=== PATIENT | male | born 1985 | race Caucasian/White ===

== ENCOUNTER 2021-05-16 14:38 | Emergency (ER) | payer OTHER, SELFPAY ==
--- NOTE | 2021-05-16 14:45 | ED.GENADULT ---
HPI - General Adult General Chief complaint: Arrhythmia/Palpitations Stated complaint: IRREGULAR HEARTBEAT/SOB Source: patient Mode of arrival: ambulatory Limitations: no limitations History of Present Illness HPI narrative: 36-year-old male presented for complaints of irregular heartbeat, onset yesterday, worsened today, stating it is more frequent. States 'it feels like a skips a beat.' Denies associated chest pain, shortness of breath, dizziness, syncope, nausea, vomiting, diarrhea, fever or chills. Drinks minimal caffeine, Runs for distance and was able to complete 4 miles yesterday without difficulty. He endorses receiving his ZeroVM booster yesterday. Hx thyroidectomy 05/22 thyroid CA. Related Data Home Medications Medication Instructions Recorded Confirmed levothyroxine [Synthroid] 05/16/21 Allergies Allergy/AdvReac Type Severity Reaction Status Date / Time No Known Allergies Allergy Verified 05/16/21 14:46 Review of Systems Review of Systems: CONSTITUTIONAL: Denies body aches, fever, chills, or sweats. EYES: Denies visual changes, redness, or discharge. ENT: Denies rhinorrhea, congestion, sore throat, or otalgia. CARDIOVASCULAR: Endorses palpitations Denies chest pain or edema. RESPIRATORY: Denies cough or dyspnea. GASTROINTESTINAL: Denies abdominal pain, nausea, vomiting, or diarrhea. GENITOURINARY: Denies dysuria or hematuria. SKIN: Denies rash, itching, or wounds. MUSCULOSKELETAL: Denies back pain, joint pain, or myalgia. NEUROLOGIC: Denies headache, numbness, tingling, or weakness. PSYCH: Denies depression or anxiety. All systems reviewed & are unremarkable except as noted in HPI and below PMFSH Family History Family History Father Family history of seizure disorder Social History Social History Smoking status: Never smoker Comments At time of signature, I have reviewed and agree with nursing past medical, surgical, social and family history unless otherwise noted. Please see nursing chart for further information. There is no relevant family history pertinent to the presenting complaint Exam Narrative: GENERAL: Well-appearing, well-nourished, and in no acute distress. HEAD: Normocephalic, atraumatic. EYES: EOMI. No redness or drainage. Conjunctivae normal. ENT: Mucous membranes pink and moist. No rhinorrhea. NECK: Normal AROM. Supple. No lymphadenopathy. Scarring 2/2 lymph node surgeries CHEST: No respiratory distress. Clear to auscultation. HEART: Regular rate and rhythm. No murmur appreciated. Normal peripheral pulses. ABDOMEN: Soft, nontender, nondistended, normal active bowel sounds. MUSCULOSKELETAL: No bony tenderness. EXTREMITIES: Normal range of motion. No edema. SKIN: Warm, dry, no rash. Capillary refill normal. Normal skin turgor. NEURO: No focal deficits. Alert and oriented x3. Gait steady. PSYCH: Normal affect. No signs of depression or anxiety. Course Course Emergency Course: EKG reviewed with pt. He is advised to f/u with cardiology for further evaluation. We discussed at length any worsening sx or concerns to go to ER. Patient is aware of diagnosis, understands and agrees to treatment plan. Anticipatory guidance given. Patient agrees to follow-up as directed and is aware of reasons to seek care at the emergency department. Portions of this record may have been created with voice recognition software Level of Care: Express Care Visit Vital Signs Vital signs: Vital Signs Temperature 97.8 F 05/16/21 14:48 Pulse Rate 72 05/16/21 14:48 Respiratory Rate 05/16/21 14:48 Blood Pressure 128/89 05/16/21 14:48 Pulse Oximetry 100 05/16/21 14:48 Temperature 97.8 F 05/16/21 14:48 Pulse Rate 72 05/16/21 14:48 Respiratory Rate 05/16/21 14:48 Blood Pressure 128/89 05/16/21 14:48 Pulse Oximetry 100 05/16/21 14:48 Me
[2021-05-16 14:48] VITALS: BP 128/89; PULSE 72; RESP 20; TEMP 36.6; O2SAT 100
--- NOTE | 2021-05-16 14:52 | ECG_ITS ---
Measurements Intervals [place] Rate: 63 P: 44 VT: 173 QRS: 26 QRSD: 113 T: 24 QT: 401 QTc: 414 Interpretive Statements SINUS RHYTHM INCOMPLETE RIGHT BUNDLE BRANCH BLOCK PEAKED T WAVES- CONSIDER HYPERKALEMIA ABNORMAL ECG Electronically Signed On 05-16-2021 15:20:22 ACTUARIAL TECHNICIAN by Dwayne Robison D.O.
== END 2021-05-16 15:20 | disposition home or self-care (01) ==
PROVIDERS: Emergency Provider Nurse Practitioner Family
DX: R00.2 Palpitations (principal); E89.0 Postprocedural hypothyroidism; Z85.850 Personal history of malignant neoplasm of thyroid
CPT/HCPCS: 93005; 99203; G0463

== ENCOUNTER 2024-05-24 08:41 | Emergency (ER) | payer OTHER, SELFPAY ==
[2024-05-24] VITALS (9 sets, daily range): BP systolic 113–120; BP diastolic 79–82; PULSE 56–68; RESP 11–19; TEMP 36.6; O2SAT 100
--- OUTSIDE RECORDS SUMMARY | 2024-05-24 08:56 | XMS_ITS | Clinical Summary ---
Author Organization [facility] Address [address] [place] [id number] Care Team Providers Care Finisher Merchant Products Name Role Phone Unavailable Primary Care Provider Unavailabl e Social History Tobacco Use Types Packs/Day Years Used Date Smoking Tobacco: Never Assessed Sex and Gender Information Value Date Recorded Sex Assigned at Not on file Legal Sex Male 8:45 AM ENVIRONMENTAL HEALTH SPECIALIST Gender Identity Not on file Sexual Orientation Not on file Plan of Treatment Health Maintenance Due Date Last Done Comments Hepatitis C Virus (HCV) Screening 1987 TdaP Immunization 1987 Hepatitis B Immunization (1 of 3 - 19+ 3-dose series) 2006 Influenza Immunization (#1) 12/20/202306/2019, 01/10/2018 SARS-COV-2 Immunization ( season) 2023 Respiratory Syncytial Virus (RSV) Immunization (Adult) (1 - 1-dose 75+ series) 2062 Meningococcal Immunization (ACWY) Aged Out No longer eligible b ased on patient's age to complete this topic Pneumococcal Immunization Combined Aged Out No longer eligible b ased on patient's age to complete this topic Rotavirus Immunization Aged Out No lo nger eligible based on patient's age to complete this topic Insurance [employer] on file
--- OUTSIDE RECORDS SUMMARY | 2024-05-24 08:56 | XMS_ITS ---
Author Organization [facility] Address [address] [place] [address] Care Team Providers Care Commercial Census Taker Name Role Phone Kaley Camacho MD Unavailable [phone] Ger Marcos MD Unavailable [phone] No, Physician Primary Care Provider [phone] Active Problems Problem Noted Date Diagnosed Date Palpitations 06/12/2021 Lipid screening 06/12/2021 Lymphadenopathy of head and neck region 10/06/19 19 Overview (10/05/2018): Added automatically from request for surgery [id number] History of papillary adenocarcinoma of thyroid 0 10/05/2018 Overview (10/05/2018): Added automatically from request for surgery [id number] Postoperative hypothyroidism 02/18/2018 Assessment & Plan (04/23/2020 4:41 PM UTILITY TRACTOR OPERATOR): Lower Synthroid to 200 mcg daily, but only half a tablet on Thursday Recheck a TSH in 3months Assessment & Plan (04/11/2019 2:14 PM UTILITY TRACTOR OPERATOR): Continue Synthroid 200 mcg daily Recheck levels in 4 wks Importance of taking the medication, on an empty stomach was discussed Assessment & Plan (02/18/2018 2:06 PM CDT): I had a lengthy discussion with shane hernandez about the goal of treatment of post operative hypothyroid. With history of papillary thyroid carcinoma a TSH in the range of 0.1 should be the goal. I explained to the patient how most patients are treated with LT4 and are adequately controlled. However in spite of normal or at goal TSH level, many patients continue to complain of some nonspecific symptoms including fatigue. In this situation, the use of T3 has been advocated . Although well conducted clinical trials testing both options of treatment e.g. L T4 versus combination L T4 plus L T3 have not shown any statistically significant difference, at an individual level some patients feel better with the combination therapy . Mr. Pelayo has already been tried on Shiloh , which includes combination of L T4 and T3. Unfortunately, he has not noticed any difference in his symptoms and has lead the patient to over replacement with hyperthyroidism. Controlling thyroid levels on Shiloh is always more difficult . Most of this patien's are actually clinical hyperthyroid or with subclinical hyperthyroidism. My recommendation at this moment is to go back to the levothyroxine. Brand name Synthroid is strongly recommended. I have recommended in a dose of 200 mcg daily Thursday through Thursday and 100 mcg on Sundays. This would be equivalent to around 180 mcg daily . 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 Camacho Assessment & Plan (04/11/2019 2:15 PM UTILITY TRACTOR OPERATOR): Keep TSH around 0.1 with normal free T4 Monitoring TG Pt also following with oncologist. Current Oncology Plans No current plan information found. Past Plans No past plan information found. Radiation Treatments * No radiation treatments are documented for this patient in [facility]. Treatments may have been administered in another system. Lifetime Dose Tracking * Chemical Lifetime Dose Automatic Entry Manual Entr y DLP 336 mGycm 336 mGycm 0 mGycm
--- OUTSIDE RECORDS SUMMARY | 2024-05-24 08:56 | XMS_ITS | Clinical Summary ---
Author Organization [facility] Address [address] [place] [address] Care Team Providers Care Hot Top Liner Helper Name Role Phone Merrill Wadsworthwn Zbigniew DO Primary Care Provider [phone] Source Comments [facility],non-owned Affiliates and Associated Physician Practices is amultiple site organization consisting of ambulatory clinics and hospital sitesin [place], [place], [place] and [place]. This disclosure is being madepursuant to the Care Everywhere program and may not contain all information available regarding this patient. Last updated 18.[facility] Allergies No known active allergies Medications * Be aware that medications may not be up to date on this document. Alwaysverify current medications with the patient. Medication Sig Dispensed Refills Start Date End Date Status hydrocodone-acetaminop hen (NORCO) 7.5-325 MG tablet Take 1-2 Tabs by mouth every 4 hours as needed for Pain. 40 Tab 0 05/20/2013 Active liothyronine (CYTOMEL) 50 MCG tablet Take 1 Tab by mouth once daily. 45 Tab 0 05/20/2013 Active Calcium 1500 MG TABS Take 4,000 mg by mouth once daily. Active Active Problems Problem Noted Date Diagnosed Date Papillary thyroid carcinoma 05/10/2013 Social History Tobacco Use Types Packs/Day Years Used Date Smoking Tobacco: Never Alcohol Use Standard Drinks/Week Comments Yes 0 (1 standard drink = 0.6 oz pur e alcohol) Sex and Gender Information Value Date Recorded Sex Assigned at Not on file Gender Identity Not on file Sexual Orientation Not on file Last Filed Vital Signs Vital Sign Reading Time Taken Comments Blood Pressure 135/77 05/26/2013 3:30 PM DIRECTOR OF PHYSICAL THERAPY Pulse 72 05/26/2013 3:30 PM DIRECTOR OF PHYSICAL THERAPY Temperature 36.6 ??C (97.9 ??F) 05/26/2013 1:16 PM CS T Respiratory Rate 18 05/26/2013 3:30 PM DIRECTOR OF PHYSICAL THERAPY Oxygen Saturation 99% 05/26/2013 3:30 PM DIRECTOR OF PHYSICAL THERAPY Inhaled Oxygen Concentration - - Weight 81.4 kg (179 lb 6.4 oz) 05/26/2013 9:20 A M DIRECTOR OF PHYSICAL THERAPY Height 193 cm (6' 4 ) 05/26/2013 9:20 AM DIRECTOR OF PHYSICAL THERAPY Body Mass Index 21.84 05/26/2013 9:20 AM DIRECTOR OF PHYSICAL THERAPY Plan of Treatment Health Maintenance Due Date Last Done Comments HIV SCREENING 2002 HEPATITIS C SCREENING 01/04/2005 DTAP/TDAP/TD VACCINES (1 - Tdap) 2006 HEPATITIS B VACCINE (1 of 3 - 19+ 3-dose series) 2006 COVID-19 VACCINE ( - 2023-2 5 season) 2023 INFLUENZA VACCINE (#1) 2023 DEPRESSION SCREENING 04/20/2024 ZOSTER VACCINE (1 of 2) 2037 HIB VACCINE Aged Out No longer eligi ble based on patient's age to complete this topic HPV VACCINE Aged Out No longer eligi ble based on patient's age to complete this topic MENINGOCOCCAL (Group B) VACCINE Aged Out No longer eligible based on patient's age to complete this topic MENINGOCOCCAL VACCINE Aged Out No chang mehul eligible based on patient's age to complete this topic PNEUMOCOCCAL VACCINE Aged Out No long er eligible based on patient's age to complete this topic Medical Devices Implanted Type Area Soft Mud Molder Device Identifier Shelf Expiration Date Model / Serial / Lot Glue Tisseel Fibrin 4ml Implanted:Qty: 1 on 05/26/2013 by Wilder Marcos MD at [facility] [employer] 12/08/2014 [id number] / / [id number] Advance Directives * FULL RESUSCITATION (Latest Code Status on File) Date Activated Date Inactivated Comments 05/19/2013 3:47 PM 05/20/2013 9:26 AM Care Teams Hot Top Liner Helper Relationship Specialty Start Date End Date Vinh Wadsworth DO PCP - General Family Medicine 05/19/13
--- OUTSIDE RECORDS SUMMARY | 2024-05-24 08:56 | XMS_ITS | Referral Summary ---
Author Organization [facility] Address [address] [place] [address] Care Team Providers Care Mirror Inspector Name Role Phone Merrill Wadsworthwn Zbigniew DO Primary Care Provider [phone] Source Comments [facility],non-owned Affiliates and Associated Physician Practices is amultiple site organization consisting of ambulatory clinics and hospital sitesin [place], [place], [place] and [place]. This disclosure is being madepursuant to the Care Everywhere program and may not contain all information available regarding this patient. Last updated 18.[facility] Allergies No known active allergies Medications * [...] Comments Blood Pressure 135/77 05/26/2013 3:30 PM SOCIAL WORK PROGRAM COORDINATOR Pulse 72 05/26/2013 3:30 PM SOCIAL WORK PROGRAM COORDINATOR Temperature 36.6 ??C (97.9 ??F) 05/26/2013 1:16 PM CS T Respiratory Rate 18 05/26/2013 3:30 PM SOCIAL WORK PROGRAM COORDINATOR Oxygen Saturation 99% 05/26/2013 3:30 PM SOCIAL WORK PROGRAM COORDINATOR Inhaled Oxygen Concentration - - Weight 81.4 kg (179 lb 6.4 oz) 05/26/2013 9:20 A M SOCIAL WORK PROGRAM COORDINATOR Height 193 cm (6' 4 ) 05/26/2013 9:20 AM SOCIAL WORK PROGRAM COORDINATOR Body Mass Index 21.84 05/26/2013 9:20 AM SOCIAL WORK PROGRAM COORDINATOR Functional Status Functional Status Response Date of Assess ment Is person deaf or have serious hearing difficult y? No 05/26/2013 Is person blind or have serious difficulty seein g? No 05/26/2013 Does person have serious dif ficulty walking/climbing stairs? No 05/26/2013 Does person have difficulty dressing/bathing? No 05/26/2013 Does person have difficulty doing errands alone? No 05/26/2013 Cognitive Status Response Date of Assessm ent Does person have difficulty concentrating/remembering/making decisions? No 05/26/2013 Plan of Treatment Not on file Medical Devices Implanted Type Area Wardrobe Attendant Device Identifier Shelf Expiration Date Model / Serial / Lot Glue Tisseel Fibrin 4ml Implanted:Qty: 1 on 05/26/2013 by Wilder Marcos MD at [facility] [employer] 12/08/2014 [id number] / / [id number] Advance Directives * FULL RESUSCITATION (Latest Code Status on File) Date Activated Date Inactivated Comments 05/19/2013 3:47 PM 05/20/2013 9:26 AM Care Teams Mirror Inspector Relationship Specialty Start Date End Date Vinh Wadsworth DO PCP - General Family Medicine 05/19/13
--- OUTSIDE RECORDS SUMMARY | 2024-05-24 08:56 | XMS_ITS | Patient Health Summary ---
Author Organization [facility] Address [address] [address] Care Team Providers Care [employer]modal Customer Service Name Role Phone Merrill Wadsworthwchet Coy DO Primary Care Provider [phone] Note from [facility] [place],non-owned Affiliates and Associated Physician Practices is amultiple site organization consisting of ambulatory clinics and hospital sitesin [place], [place], [place] and [place]. This disclosure is being madepursuant to the Care Everywhere program and may not contain all information available regarding this patient. Last updated 18.[facility] [employer] Allergies No known active allergies Medications * Be aware that medications may not be up to date on this document. Alwaysverify current medications with the patient. * hydrocodone-acetaminophen (NORCO) 7.5-325 MG tablet(Started 05/20/2013) Take 1-2 Tabs by mouth every 4 hours as needed for Pain. * liothyronine (CYTOMEL) 50 MCG tablet(Started 05/20/2013) Take 1 Tab by mouth once daily. * Calcium 1500 MG TABS Take 4,000 mg by mouth once daily. Active Problems Problem Noted Date Diagnosed Date [...] Comments Blood Pressure 135/77 05/26/2013 3:30 PM FINISH CLEANER Pulse 72 05/26/2013 3:30 PM FINISH CLEANER Temperature 36.6 ??C (97.9 ??F) 05/26/2013 1:16 PM CS T Respiratory Rate 18 05/26/2013 3:30 PM FINISH CLEANER Oxygen Saturation 99% 05/26/2013 3:30 PM FINISH CLEANER Inhaled Oxygen Concentration - - Weight 81.4 kg (179 lb 6.4 oz) 05/26/2013 9:20 A M FINISH CLEANER Height 193 cm (6' 4 ) 05/26/2013 9:20 AM FINISH CLEANER Body Mass Index 21.84 05/26/2013 9:20 AM FINISH CLEANER Medical Devices Implanted Type Area Wall Crane Operator Device Identifier Shelf Expiration Date Model / Serial / Lot Glue Tisseel Fibrin 4ml Implanted:Qty: 1 on 05/26/2013 by Wilder Marcos MD at [facility] [employer] 12/08/2014 [id number] / / [id number] Procedures * US SOFT TISSUE HEAD NECK(Performed 10/02/2014) Performed for Malignant neoplasm of thyroid gland (HCC) * NM THYROID WHOLE BODY SCAN(Performed 03/01/2014) Performed for Malignant neoplasm of thyroid gland (HCC) * NM RADIOPHARM THERAPY BY ORAL ADM(Performed 02/27/2014) Performed for Thyroid cancer (HCC) * NM THYROID WHOLE BODY SCAN(Performed 01/27/2014) Performed for Thyroid cancer (HCC) * NM THYROID WHOLE BODY SCAN(Performed 06/23/2013) Performed for Malignant neoplasm of thyroid gland (HCC) * NM RADIOPHARM THERAPY BY ORAL ADM(Performed 06/21/2013) Performed for Malignant neoplasm of thyroid gland (HCC) * EXPLORATION NECK(Performed 05/26/2013) Performed for Other specified forms of effusion, except tuberculous * PULMONARY/RESPIRATORY REPORT ORDER(Performed 05/22/2013) * LAB RESULTS ORDER(Performed 05/22/2013) * CALCIUM IONIZED BLOOD(Performed 05/20/2013) Performed for Papillary thyroid carcinoma (HCC) * PATHOLOGY TISSUE EXAM (STL)(Performed 05/19/2013) Performed for Papillary thyroid carcinoma (HCC) * DISSECTION RADICAL NECK(Performed 05/19/2013) Performed for Malignant neoplasm of thyroid gland (HCC), Enlargement of lymph nodes * THYROIDECTOMY(Performed 05/19/2013) Performed for Malignant neoplasm of thyroid gland (HCC), Enlargement of lymph nodes * CBC W AUTO DIFFERENTIAL(Performed 05/09/2013) Performed for Other specified pre-operative examination * FINE NEEDLE ASPIRATION (STL)(Performed 04/05/2013) Performed for Nontoxic uninodular goiter, Goiter, unspecified, Unspecified hypothyroidism, Enlargement of lymph nodes * US THYROID FNA LEFT(Performed 04/05/2013) Performed for Nontoxic uninodular goiter, Goiter, unspecified, Unspecified hypothyroidism, Enlargement of lymph nodes * CT NECK SOFT TISSUE W CONT(Performed 04/05/2013) Performed for Nontoxic uninodular goiter, Goiter, unspecified, Unspecified hypothyroidism, Enlargement of lymph nodes Results * US HEAD NECK TISSUES B - SCAN REAL TIME (10/02/2014 7:51 AM CDT) Anatomical Region Laterality Modality Head Ultrasound 10/02/2014 10:1 9 AM CDT Impressions 10/02/2014 11:35 AM CDT Hypoechoic tissue in the bilateral thyroid bed may reflect recurrent or remnant thyroid tissue. If it would change clinical management, FNA or nuclear scintigraphy could be provided. Edited by Fina Rubio on 10/02/2014 10:27 AM Narrative 10/02/2014 11:35 AM CDT ULTRASOUND THYROID HISTORY: Prior thyroidectomy for cancer. COMPARISON: 2013. TECHNIQUE: Real-time high frequency ultrasound of the thyroid performed by ultrasound technol including color Doppler imaging and DICOM image capture. FINDINGS: The patient is status post thyroidectomy. In the right thyroid bed, there is a 12 x 7 mm lobulated hypoechoic lesion which may reflect recurrent or remnant thyroid tissue. See image 18. In the left thyroid bed, there is a similar 10 x 15 x 8 mm hypoechoic lesion, image 37 + 38. No internal Doppler signal or microcalcifications in either thyroid bed. There are small nonenlarged right cervical lymph nodes. Procedure Note Betito Flores MD - 10/02/2014 ULTRASOUND THYROID HISTORY: Prior thyroidectomy for cancer. COMPARISON: 2013. TECHNIQUE: Real-time high frequency ultrasound of the thyroid performed by ultrasound technol including color Doppler imaging and DICOM image capture. FINDINGS: The patient is status post thyroidectomy. In the right thyroid bed, there is a 12 x 7 mm lobulated hypoechoic lesion which may reflect recurrent or remnant thyroid tissue. See image 18. In the left thyroid bed, there is a similar 10 x 15 x 8 mm hypoechoic lesion, image 37 + 38. No internal Doppler signal or microcalcifications in either thyroid bed. There are small nonenlarged right cervical lymph nodes. IMPRESSION Hypoechoic tissue in the bilateral thyroid bed may reflect recurrent or remnant thyroid tissue. If it would change clinical management, FNA or nuclear scintigraphy could be provided. Edited by Fina Rubio on 10/02/2014 10:27 AM Kaley Camacho MD US ORDERABLES * NM THYROID CA METS SCAN WHOLE BODY (03/01/2014 2:08 PM FINISH CLEANER) Only the most recent of3 resultswithin the time period is included. Anatomical Region Laterality Modality Chest Nuclear Medicine 03/01/2014 2:36 PM FINISH CLEANER Impressions 03/01/2014 2:42 PM FINISH CLEANER No metastatic disease or residual thyroid tissue identified. No significant change. Narrative 03/01/2014 2:42 PM FINISH CLEANER Nuclear medicine radioiodine whole-body scan: HISTORY: Thyroid cancer, thyroidectomy. Prior iodine-131 ablation therapy. Followup evaluation. 145.9 mCi iodine-131 was orally administered 02/27/2014. A whole-body radioiodine scan was performed on 03/01/2014 (48 hours after the administration). Comparison is made to prior studies, most recently on 01/27/2014. There is no abnormal focus of activity identified in the region of the thyroid bed, neck, or elsewhere in the body to suggest residual thyroid tissue or metastatic disease. Procedure Note Chan Phillips MD - 03/01/2014 Nuclear medicine radioiodine whole-body scan: HISTORY: Thyroid cancer, thyroidectomy. Prior iodine-131 ablation therapy. Followup evaluation. 145.9 mCi iodine-131 was orally administered 02/27/2014. A whole-body radioiodine scan was performed on 03/01/2014 (48 hours after the administration). Comparison is made to prior studies, most recently on 01/27/2014. There is no abnormal focus of activity identified in the region of the thyroid bed, neck, or elsewhere in the body to suggest residual thyroid tissue or metastatic disease. IMPRESSION No metastatic disease or residual thyroid tissue identified. No significant change. Kaley Camacho MD NM ORDERABLES * NM RADIOPHARM THERAPY BY ORAL ADM (02/27/2014 2:58 PM FINISH CLEANER) Only the most recent of2 resultswithin the time period is included. Anatomical Region Laterality Modality Nuclear Medicine 02/27/2014 3:22 PM FINISH CLEANER Impressions 02/27/2014 3:22 PM FINISH CLEANER Therapeutic radiopharmaceutical administration as discussed above. Narrative 02/27/2014 3:22 PM FINISH CLEANER Nuclear medicine radioactive iodine radiopharmaceutical therapeutic administration HISTORY: Cancer. TECHNIQUE AND FINDINGS: Therapeutic radioactive iodine administration supervised by the ordering + authorized clinician. Please refer to any relevant documentation by the supervising authorized physician. Reportedly, under direct observation by Dr. Camacho, the patient ingested P.O. ??145.9 mCi of I-131. Procedure Note Betito Flores MD - 02/27/2014 Nuclear medicine radioactive iodine radiopharmaceutical therapeutic administration HISTORY: Cancer. TECHNIQUE AND FINDINGS: Therapeutic radioactive iodine administration supervised by the ordering + authorized clinician. Please refer to any relevant documentation by the supervising authorized physician. Reportedly, under direct observation by Dr. Camacho, the patient ingested P.O. 145.9 mCi of I-131. IMPRESSION Therapeutic radiopharmaceutical administration as discussed above. Kaley Camacho MD NM ORDERABLES * PULMONARY/RESPIRATORY REPORT ORDER (05/22/2013 3:28 AM FINISH CLEANER) Narrative 05/22/2013 3:28 AM FINISH CLEANER Ordered by an unspecified provider. Transcriptions Document, Scanned - 05/22/2013 3:28 AM CST Scanned Document RESPIRATORY THERAPY ORDERABLES * LAB RESULTS ORDER (05/22/2013 3:28 AM FINISH CLEANER) Narrative 05/22/2013 3:28 AM FINISH CLEANER Ordered by an unspecified provider. Transcriptions Document, Scanned - 05/22/2013 3:28 AM CST Scanned Document LAB - THERAPEUTIC DR LIN MONITORING ORDERABLES * (ABNORMAL) CALCIUM IONIZED BLOOD (05/20/2013 4:19 AM FINISH CLEANER) Calcium Ionized 1.05(L) 1.12 - 1.32 mmol/L 05/20/2013 4:50 AM [facility] pH 7.37 7.35 - 7.45 pH 05/20/2013 4:50 AM [facility] Blood BLOOD SPECIMEN SUBMITTED IN HEPARINIZED COLLECTION TUBE / Unknown Lab Venipuncture / Unknown 05/20/2013 4:19 AM FINISH CLEANER 05/20/2013 4:42 AM FINISH CLEANER Wilder Marcos MD LAB - CHEMISTRY KEISHA ORTIZ [facility] [address] [place] [address] * GROSS + MICRO EXAM (STL) (05/19/2013 9:50 AM FINISH CLEANER) Case Report Surgical Pathology Report ? Case: [id number] ? -------- Authorizing Provider: ??Wilder Marcos MD ?Ordering Provider: ?? Wilder Marcos MD ? Ordering Location: ? [facility] ? Collected: ? 05/19/2013 ??9:50 AM ? Pathologist: ? Chan Cornejo MD ? Received: ?05/19/2013 ??3:23 PM ?Signed Out: ?05/23/2013 ??3:27 PM (Final) ? Specimens: ?? A) - Thyroid Total ? B) - Lymph Node, Rt central compartment ? C) - Lymph Node, LT medial central compartment ? D) - Lymph Node, Lt lateral central compartment ? E) - Lymph Node, Lt lateral levels 2,3,4 superior node ? F) - Lymph Node, Lt lateral neck dissection zone 2,3,4 ? 05/23/2013 3:27 PM FINISH CLEANER [facility] Final Diagnosis Thyroid, left, excision: ? Papillary carcinoma, well-differentiate d ? 5.8 cm maximum dimension ? Unremarkable margins ? No lymph-vascular invasion ? Unremarkable parathyroid tissue present ? Two pericapsular lymph nodes with metastatic papillary carcinoma Thyroid, isthmus, excision: ? Papillary carcinoma, well-differentiate d ? 0.5 cm maximum dimension ? Unremarkable margins ? No lymph-vascular invasion ? Thyroid, right, excision: ? Nodular hyperplasia ? No malignancy identified ? Lymph node, right central compartment, excision: ? Metastatic carcinoma (1 of 1) Lymph nodes, left medial central compartment, excision: ? Metastatic carcinoma (5 of 5) Lymph node, left lateral central compartment, excision: ? Unremarkable fibroadipose connective tissue ? No lymph node tissue present ? No malignancy identified ? Unremarkable parathyroid tissue present Lymph node, left lateral superior, excision: ? No pathologic diagnosis (one node tumor free) Lymph nodes, left lateral zone 2, excision: ? Metastatic carcinoma (3 of 5) Lymph nodes, left lateral zone 3, excision: ? Metastatic carcinoma (1 of 3) Lymph nodes, left lateral zone 4, excision: ? Metastatic carcinoma (2 of 3) No lymph nodes show extracapsular extension by tumor. SURGICAL PATHOLOGY CANCER CASE SUMMARY (CHECKLIST) PROCEDURE: Total thyroidectomy with central compartment and left neck dissection SPECIMEN INTEGRITY: Intact SPECIMEN SIZE: Right lobe: 4.2 x 2 x 1.3 cm Left lobe: 6.2 x 3.1 x 3 cm Isthmus: 3.2 x 2.5 x 0.6 TUMOR FOCALITY: Multifocal (left and isthmus) DOMINANT TUMOR Tumor Laterality: Left lobe TUMOR SIZE: 5.8 cm maximum dimension HISTOLOGIC TYPE: Papillary carcinoma, classical variant with classical architecture and classical cytomorphology MARGINS: Margins uninvolved by carcinoma TUMOR CAPSULE: Totally encapsulated TUMOR CAPSULAR INVASION: Not identified LYMPH-VASCULAR INVASION: Not identified EXTRATHYROIDAL EXTENSION: Not identified SECOND TUMOR TUMOR LATERALITY: Isthmus TUMOR SIZE: 0.5 cm greatest dimension HISTOLOGIC TYPE: Papillary carcinoma, classical variant with classical architecture and classical cytomorphology MARGINS: Uninvolved by carcinoma TUMOR CAPSULE: Totally encapsulated TUMOR CAPSULAR INVASION: Not identified LYMPH-VASCULAR INVASION: Not identified EXTRATHYROIDAL EXTENSION: Not identified PATHOLOGIC STAGING Primary Tumor: pT3 Regional Lymph Nodes: pN1b Number Examined: 18; number involved: 12 Lymph Node Extranodal Extension: Not identified Distant Metastasis: Not applicable BUSHRA/hero 05/23/2013 3:27 PM [facility] Clinical History Preoperative Diagnosis: Papillary thyroid carcinoma, cervical lymphadenopathy Postoperative Diagnosis: Same Clinical Findings: Same 05/23/2013 3:27 PM FINISH CLEANER [facility] Gross Description Six portions are received in Histochoice. ??Portion 1 is subsequently formalin fixed and portions 2-6 are subsequently fixed in lymph node enhancing reagent. ?? First portion labeled total thyroid consists of a 34 gram total thyroidectomy specimen. ??The left lobe is 6.2 x 3.1 x 3 cm, isthmus is 3.2 x 2.5 x 0.6 cm, and the right lobe is 4.2 x 2 x 1.3 cm. ??The anterior margin is inked blue and the posterior margin is inked black. ??The left lobe has a large palpable mass with intact capsule. ??The left lobe is sectioned from the superior to inferior margin to reveal a 5.8 x 3 x 3 cm golden-white friable mass with slightly irregular margins abutting anterior and posterior margins. ??The mass is located adjacent to the superior pole with intact smooth glistening capsule and approximately 1.2 cm from the inferior pole. ??There are a few gritty calcifications present throughout the mass. ??The isthmus is sectioned from the lateral to right margin to reveal 0.6 cm pale nodule located towards the left superior side. ??Remainder of the parenchyma has red-brown appearance. ??The right lobe of the thyroid is sectioned from the superior to inferior pole to reveal a 0.5 cm pale golden discrete nodule located 1.5 cm from the superior pole and adjacent to the anterior margin. ??The remainder is located approximately 1 cm from the superior margin. ??There are two additional pale golden nodules located towards the inferior pole .4 cm located adjacent to the posterior margin and 0.2 cm located towards the margin. ??The remainder of the parenchyma has red-brown glistening appearance. ??The inferior margin is perpendicularly sectioned. ?? Second portion is labeled right central compartment lymph node consists of an 8 x 6 x 6 mm golden-brown node. ??Sectioning reveals a 0.3 cm partially cystic area containing golden-brown colloid appearing material. ??The specimen is sectioned and entirely submitted in B1. Third portion labeled left medial central compartment lymph node consists of an irregular shaped 3.3 x 1.8 x 1.6 cm portion of node-bearing adipose tissue which is sectioned to reveal 5 golden nodes 0.3-1 cm in greatest dimension. ??The largest node has partially cystic area containing golden-brown colloid appearing material. ??The node separately identified and entirely submitted. ??There is a 1.8 x 0.8 cm vessel with clot and adjacent node. Fourth portion labeled left lateral central compartment lymph node consists of a 2.8 x 1.6 x 1 cm portion of dusky golden-brown rubbery tissue. ??Sectioning reveals hemorrhagic soft tissue, vessel up to 0.2 cm in diameter and possible 2 mm lymph node. ??The specimen is entirely submitted in blocks D1-2. Fifth portion labeled left lateral levels 2-3, 4 superior node consists of an 8 mm golden-white intact node which is sectioned and entirely submitted in block E1. Sixth portion labeled left lateral neck dissection zone 2, 3, 4 - stitch gaitan superior edge consists of an 8.2 cm portion of node-bearing adipose tissue which varies from 2.8 cm at the superior edge and 4.2 cm at the inferior edge. ??Specimen is divided into three zones, superior third (presumed level 2) contains multiple golden partially solid and cystic nodes containing yellow colloid-like material 0.5-1.2 cm in greatest dimension. ??Sectioning through the middle third (presumed level 3) reveals 3 golden nodes 0.3-1.8 cm in greatest dimension. ??The largest node has a partially cystic component containing yellow colloid-like material. Sectioning through the inferior third (level 4) reveals few golden nodes ranging in size from 0.8-3.4 cm in greatest dimension. ??The larger node has multiple large cystic areas up to 2 cm in greatest dimension containing yellow colloid-like material. ??A investment representative sections of each node is submitted. BLOCKS: A1-A20 - Left lobe of thyroid (5-6, 7-8, 9-10, 11-12, 13-14, composite sections); A11 - decalcified; sections submitted from superior to inferior pole. A21-A23 - Isthmus submitted from left to right A24-A31 - Right lobe of thyroid submitted from superior to inferior pole B1 - Right central compartment lymph node C1 - Left medial central compartment lymph node, 3 nodes 1 inked blue, 1 inked black and 1 uninked C2 - Left medial central compartment lymph node 1 node C3 - Left medial central compartment lymph node 1 node, largest node D1-D2 - Left lateral central compartment lymph node (D2 possible 2 mm node) E1 - Left lateral levels 2, 3, 4 superior node F1 - Left lateral neck dissection zone 2 F2 - Left lateral neck dissection zone 3 F3-F4 - Left lateral neck dissection zone 4 DC/cw 05/23/2013 3:27 PM [facility] Microscopic Description Microscopic examination corroborates the diagnosis. DH/hero 05/23/2013 3:27 PM [facility] Testing Performed By Not dictated 05/23/2013 3:27 PM [facility] Synoptic Report 05/23/2013 3:27 PM [facility] Pathology/Cytology SPECIMEN FROM THYROID OBTAINED BY TOTAL THYROIDECTOMY / Unknown 05/19/2013 9:50 AM FINISH CLEANER 05/19/2013 3:23 PM FINISH CLEANER Miscellaneous samples (specimen) ENTIRE LYMPH NODE / Unknown 05/19/2013 9:50 AM FINISH CLEANER 05/19/2013 3:23 PM FINISH CLEANER Miscellaneous samples (specimen) ENTIRE LYMPH NODE / Unknown 05/19/2013 9:50 AM FINISH CLEANER 05/19/2013 3:23 PM FINISH CLEANER Miscellaneous samples (specimen) ENTIRE LYMPH NODE / Unknown 05/19/2013 9:50 AM FINISH CLEANER 05/19/2013 3:23 PM FINISH CLEANER Miscellaneous samples (specimen) ENTIRE LYMPH NODE / Unknown 05/19/2013 9:50 AM FINISH CLEANER 05/19/2013 3:23 PM FINISH CLEANER Miscellaneous samples (specimen) ENTIRE LYMPH NODE / Unknown 05/19/2013 9:50 AM FINISH CLEANER 05/19/2013 3:23 PM FINISH CLEANER Wilder Marcos MD LAB - PATHOLOGY/CYTO LOGY ORDERABLES [facility] [address] [place] [address] * (ABNORMAL) CBC W AUTO DIFFERENTIAL (05/09/2013 7:36 AM FINISH CLEANER) WBC 4.9 4.4 - 10.7 x10^9/L 05/09/2013 7:51 AM [facility] RBC 5.10 3.80 - 5.40 x10^12/L 05/09/2013 7:51 AM [facility] Hemoglobin 14.5 12.0 - 17.6 gm/dL 05/09/2013 7:51 AM [facility] Hematocrit 40.0 35.2 - 51.7 % 05/09/2013 7:51 AM [facility] MCV 78.4(L) 80.7 - 98.3 fl 05/09/2013 7:51 AM [facility] MCH 28.4 26.7 - 34.0 pg 05/09/2013 7:51 AM [facility] MCHC 36.3(H) 30.8 - 35.9 gm/dL 05/09/2013 7:51 AM [facility] Platelet Count 227 153 - 416 x10^9/L 05/09/2013 7:51 AM [facility] RDW-CV 12.9 12.1 - 14.9 % 05/09/2013 7:51 AM [facility] MPV 9.4 9.4 - 12.9 fl 05/09/2013 7:51 AM [facility] Neutrophils % 53.3 44.0 - 73.0 % 05/09/2013 7:51 AM [facility] Lymphocytes % 37.4 20.0 - 43.0 % 05/09/2013 7:51 AM [facility] Monocytes % 6.3 5.0 - 13.0 % 05/09/2013 7:51 AM [facility] Eosinophils % 2.2 0.0 - 6.0 % 05/09/2013 7:51 AM FINISH CLEANER [facility] Basophils % 0.6 0.0 - 2.0 % 05/09/2013 7:51 AM [facility] Immature Granulocytes 0.2 0 - 1 % 05/09/2013 7:51 AM [facility] Neutrophil Absolute 2.62 2.01 - 7.14 x10^9/L 05/09/2013 7:51 AM [facility] Lymphocytes Absolute 1.84 1.07 - 3.94 x10^9/L 05/09/2013 7:51 AM [facility] Monocytes Absolute 0.31 0.26 - 1.07 x10^9/L 05/09/2013 7:51 AM [facility] Eosinophils Absolute 0.11 0 - 0.47 x10^9/L 05/09/2013 7:51 AM [facility] Basophils Absolute 0.03 0 - 0.08 x10^9/L 05/09/2013 7:51 AM [facility] Immature Granulocytes Absolute 0.01 0.00 - 0.06 x10^9/L 05/09/2013 7:51 AM [facility] nRBC Auto 0 /100 WBC 05/09/2013 7:51 AM [facility] Blood BLOOD SPECIMEN / Unknown Lab Venipuncture / Unknown 05/09/2013 7:36 AM FINISH CLEANER 05/09/2013 7:40 AM [facility] Ger Diaz DO LAB - HEMATOLOGY ORD ERABLES [facility] [address] [place] [address] * FINE NEEDLE ASPIRATION (STL) (04/05/2013 2:28 PM FINISH CLEANER) Case Report Fine Needle Aspiration Report ? Case: [id number] ? Authorizing Provider: ??Wilder Marcos MD ?Ordering Provider: ?? Wilder Marcos MD ? Ordering Location: ? [facility] CT SCAN ? Collected: ? 04/05/2013 ??2:28 PM ? Pathologist: ? Idalia Gage MD ?Received: ?04/05/2013 ??2:28 PM ?Signed Out: ?04/06/2013 ??6:00 PM (Final) ? Specimen: ?Thyroid, LT ? 04/06/2013 6:00 PM FINISH CLEANER [facility] Final Diagnosis Left thyroid, 5 x 3 x 3 cm nodule, ultrasound guided FNA biopsy x3 (three immediate evaluations): ? -Papillary carcinoma NM/dak 04/06/2013 6:00 PM [facility] Clinical History Left thyroid nodule, 5 x 3 x 3 cm with microcalcifications 04/06/2013 6:00 PM [facility] Gross Description Six alcohol fixed slides were marked. Three passes were performed under ultrasound guidance by Dr. Moreau. All passes were performed to obtain FNA biopsy material. The first pass yields a small red droplet of fluid. Smears are prepared and quick stained with an immediate evaluation reported to Dr. Moreau at the time of the procedure by Dr. Gage as rare groups with rare internuclear inclusions . The second pass yields a minute pink droplet of fluid. Smears are prepared and quick stained with an immediate evaluation reported to Dr. Moreau at the time of the procedure by Dr. Gage as scant . The third pass yields a small red droplet of fluid. Smears are prepared and quick stained with an immediate evaluation reported to Dr. Moreau at the time of the procedure by Dr. Gage as groups present including groups with internuclear grooves and internuclear inclusions . 04/06/2013 6:00 PM [facility] Microscopic Description Microscopic examination corroborates the diagnosis and intraprocedural interpretations. The smears are abundantly cellular, with epithelial cells present in variably sized sheets and occasional three-dimensional grooves. Abundant nuclear grooves and internuclear pseudo inclusions are readily identified. Dr. Carmona has reviewed this case and concurs with the diagnosis. 04/06/2013 6:00 PM [facility] Testing Performed By [facility] Pathologists, [facility] at [facility], [address] [place] [address]. [id number] 04/06/2013 6:00 PM [facility] Synoptic Report 04/06/2013 6:00 PM [facility] Pathology/Cytolo gy SPECIMEN FROM THYROID OBTAINED BY THYROIDECTOMY / Unknown 04/05/2013 2:28 PM FINISH CLEANER 04/05/2013 2:28 PM FINISH CLEANER Wilder Marcos MD LAB - PATHOLOGY/CYTO LOGY ORDERABLES [facility] [address] [place] [id number] * US NDL GUID THYROID BX/FNA LT (04/05/2013 2:06 PM FINISH CLEANER) Anatomical Region Laterality Modality Ultrasound 04/05/2013 4:55 PM FINISH CLEANER Impressions 04/05/2013 6:06 PM FINISH CLEANER Left thyroid nodule fine-needle aspiration. Edited by Elin Bartholomew on 04/05/2013 5:58 PM Narrative 04/05/2013 6:06 PM FINISH CLEANER ULTRASOUND-GUIDED THYROID NODULE FINE NEEDLE ASPIRATION HISTORY: ??Nontoxic uninodular goiter. ??Large left thyroid nodule. COMPARISON: None PROCEDURES: (Not necessarily separate billable procedures) Left thyroid ultrasound Fine-needle aspiration of left thyroid nodule x3, ultrasound image(s) were recorded Post procedure left thyroid ultrasound TECHNIQUE: After signed informed consent was obtained the patient was laid supine on the ultrasound table and neck prepped and draped in usual sterile fashion. Subcutaneous lidocaine was administered and under ultrasound guidance three 25-gauge FNA samples of the left thyroid nodule in various areas (due to its large size). Pathology verify the adequacy of samples. Sterile bandage was applied. Patient tolerated procedure well with no immediate complication. FINDINGS: Ultrasound demonstrates a large left thyroid nodule of mixed echogenicity containing both cystic and solid areas as well as diffuse microcalcifications. The nodule measures up to 5 cm cranial caudal and is approximately 3 cm x 3 cm in maximal axial diameter. ? Nodule was easily accessed with needle as described above. Post procedure images show no evidence of complication. Procedure Note Juventino Lara MD - 04/05/2013 ULTRASOUND-GUIDED THYROID NODULE FINE NEEDLE ASPIRATION HISTORY: Nontoxic uninodular goiter. Large left thyroid nodule. COMPARISON: None PROCEDURES: (Not necessarily separate billable procedures) Left thyroid ultrasound Fine-needle aspiration of left thyroid nodule x3, ultrasound image(s) were recorded Post procedure left thyroid ultrasound TECHNIQUE: After signed informed consent was obtained the patient was laid supine on the ultrasound table and neck prepped and draped in usual sterile fashion. Subcutaneous lidocaine was administered and under ultrasound guidance three 25-gauge FNA samples of the left thyroid nodule in various areas (due to its large size). Pathology verify the adequacy of samples. Sterile bandage was applied. Patient tolerated procedure well with no immediate complication. FINDINGS: Ultrasound demonstrates a large left thyroid nodule of mixed echogenicity containing both cystic and solid areas as well as diffuse microcalcifications. The nodule measures up to 5 cm cranial caudal and is approximately 3 cm x 3 cm in maximal axial diameter. Nodule was easily accessed with needle as described above. Post procedure images show no evidence of complication. IMPRESSION Left thyroid nodule fine-needle aspiration. Edited by Elin Bartholomew on 04/05/2013 5:58 PM Wilder Marcos MD US ORDERABLES * CT SOFT TISSUE NECK WITH CONTRAST (04/05/2013 1:26 PM FINISH CLEANER) Anatomical Region Laterality Modality Head Computed Tomogra phy 04/05/2013 4:57 PM FINISH CLEANER Impressions 04/06/2013 12:15 PM FINISH CLEANER Left cervical and supraclavicular adenopathy. Large left thyroid nodule. If the current thyroid biopsy is positive for thyroid malignancy then an I-131 uptake and scan should be performed for workup of the adenopathy. Edited by Elin Bartholomew on 04/05/2013 6:15 PM Narrative 04/06/2013 12:[address] SCAN OF THE NECK WITH CONTRAST COMPARISON: None. HISTORY: Nontoxic uninodular goiter. TECHNIQUE: Helical CT acquisition of the neck following administration of intravenous nonionic iodinated contrast. FINDINGS: There is left cervical adenopathy with 3 adjacent enlarged lymph nodes, levels IIB and III, running cranial caudal just behind the jugular and carotid as well as deep to the sternocleidomastoid (series 102, images 26 and 43, and coronal image 26). The superior most node measures 18 x 12 mm in maximal axial diameter and 29 mm cranial caudal. Also there is left supraclavicular adenopathy with a lymph node measuring approximately 22 x 15 mm (series 102, image 71) and just underneath the clavicle measuring 24 x 17 mm (series 2, image 75). These lymph nodes are difficult to measure as the patient has very little subcutaneous fat and the adjacent musculature is tight along with the vascular structures. There is a very large, heterogenous left thyroid nodule occupying nearly the entire left thyroid measuring 3.0 x 3.0 cm in maximal axial diameter (series 102, image 64) and approximately 6 cm cranial caudal (coronal image 19). Visualized lung apices are clear. There is no acute osseous abnormality. Carotids and submandibular glands are normal. Procedure Note Juventino Lara MD - 04/06/2013 CT SCAN OF THE NECK WITH CONTRAST COMPARISON: None. HISTORY: Nontoxic uninodular goiter. TECHNIQUE: Helical CT acquisition of the neck following administration of intravenous nonionic iodinated contrast. FINDINGS: There is left cervical adenopathy with 3 adjacent enlarged lymph nodes, levels IIB and III, running cranial caudal just behind the jugular and carotid as well as deep to the sternocleidomastoid (series 102, images 26 and 43, and coronal image 26). The superior most node measures 18 x 12 mm in maximal axial diameter and 29 mm cranial caudal. Also there is left supraclavicular adenopathy with a lymph node measuring approximately 22 x 15 mm (series 102, image 71) and just underneath the clavicle measuring 24 x 17 mm (series 2, image 75). These lymph nodes are difficult to measure as the patient has very little subcutaneous fat and the adjacent musculature is tight along with the vascular structures. There is a very large, heterogenous left thyroid nodule occupying nearly the entire left thyroid measuring 3.0 x 3.0 cm in maximal axial diameter (series 102, image 64) and approximately 6 cm cranial caudal (coronal image 19). Visualized lung apices are clear. There is no acute osseous abnormality. Carotids and submandibular glands are normal. IMPRESSION Left cervical and supraclavicular adenopathy. Large left thyroid nodule. If the current thyroid biopsy is positive for thyroid malignancy then an I-131 uptake and scan should be performed for workup of the adenopathy. Edited by Elin Bartholomew on 04/05/2013 6:15 PM Wilder Marcos MD CT ORDERABLES Care Teams [employer] Customer Service Relationship Specialty Start Date End Date Vinh Wadsworth DO PCP - General Family Medicine 05/19/13
--- OUTSIDE RECORDS SUMMARY | 2024-05-24 08:57 | XMS_ITS | Encounter Summary ---
Author Organization [facility] Healthcare Address [address] [place] [address] Care Team Providers Care Wrapper Stripper Name Role Phone Kaley Camacho MD Unavailable [phone] Ger Marcos MD Unavailable [phone] No, Physician Primary Care Provider [phone] Encounter Details Date Type Department Care Team (Late st Contact Info) Description 05/23/2024 Telephone [facility] Medical [facility] [place] [address] [place] [address] Xiomy Yee MA Social History Tobacco Use Types Packs/Day Years Used Date Smoking Tobacco: Never Smokeless Tobacco: Never Alcohol Use Standard Drinks/Week Comments Yes 2 (1 standard drink = 0.6 oz pur e alcohol) PHQ-2 Answer Date Recorded PHQ-2 Total Score (If total score is 3 or more points, staff should administer the PHQ-9) 0 04/23/2020 Sex and Gender Information Value Date Recorded Sex Assigned at Not on file Legal Sex Male 7:21 PM DIAGNOSTICS TECH Gender Identity Male 10/25/2020 12:45 PM CDT Sexual Orientation Straight 04/11/2019 6: 38 AM DIAGNOSTICS TECH 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 Continue using albuterol inhaler as needed. Follow up with PCP if symptoms persist or worsen. NOSTICS TECH * Telephone Encounter - Xiomy Yee MA - 05/23/2024 2:21 PM CST PT is aware NOSTICS TECH * Telephone Encounter - Xiomy Yee MA - 05/23/2024 2:21 PM CST ----- Message from Nidia Singh NP sent at 05/23/2024 8:50 AM DIAGNOSTICS TECH ----- Please call patient and let him know chest x-ray was negative for pneumonia. Continue using albuterol inhaler as needed. Follow up with PCP if symptoms persist or worsen. NOSTICS TECH documented in this encounter Plan of Treatment Not on file documented as of this encounter Visit Diagnoses Not on filedocumented in this encounter Care Teams Wrapper Stripper Relationship Specialty Start Date End Date No, Physician PCP - General 05/22/24 Kaley Camacho MD [address] [place] [address] Radiation Oncologist Radiation Oncology 01/19/18 Ger Marcos MD [address] [place] [address] Surgeon Otolaryngology 01/19/18 documented as of this encounter
--- OUTSIDE RECORDS SUMMARY | 2024-05-24 08:57 | XMS_ITS | Clinical Summary ---
Author Organization [facility] Address [address] [place] [address] Care Team Providers Care Sales Agent Name Role Phone Kaley Camacho MD Unavailable [phone] Ger Marcos MD Unavailable No, Physician Primary Care Provider [phone] Allergies No known active allergies Medications multivitamin tabletIndication s:Vitamin Deficiency Prevention Take 1 tablet by mouth every morning Active LACTOBACILLUS ACIDOPHILUS (PROBIOTIC ACIDOPHILUS ORAL) Take 1 capsule by mouth every morning Active glucosam-chondro itin-diet cb25 116-100 mg capsule Take 2 capsules by mouth every morning Active levothyroxine (SYNTHROID) 175 mcg tablet Take 1 tablet (175 mcg total) by mouth daily 90 tablet 3 4 02/24/20 25 Active albuterol HFA (PROVENTIL HFA,VENTOLIN HFA,PROAIR HFA) 90 mcg/actuation inhalerIndicatio ns:Viral URI with cough Inhale 2 puffs every 6 (six) hours as needed for shortness of breath 18 g 5 Active Hospital, Clinic, or Other Facility Administered Medication Ordered Dose Route Frequency Start Date End Date Status acetaminophen (TYLENOL) tablet 975 mgIndications:Viral URI with cough 975 mg oral Once 05/22/2024 05/22/2024 Ended Active Problems Problem Noted Date Diagnosed Date Palpitations 06/12/2021 Lipid screening 06/12/2021 Lymphadenopathy of head and neck region 10/06/19 19 Overview (10/05/2018): Added automatically from request for surgery [id number] History of papillary adenocarcinoma of thyroid 0 10/05/2018 Overview (10/05/2018): Added automatically from request for surgery [id number] Postoperative hypothyroidism 02/18/2018 Assessment & Plan (04/23/2020 4:41 PM E LEARNING DEVELOPER): Lower Synthroid to 200 mcg daily, but only half a tablet on Thursday Recheck a TSH in 3months Assessment & Plan (04/11/2019 2:14 PM E LEARNING DEVELOPER): Continue Synthroid 200 mcg daily Recheck levels in 4 wks Importance of taking the medication, on an empty stomach was discussed Assessment & Plan (02/18/2018 2:06 PM CDT): I had a lengthy discussion with dust in about the goal of treatment of post [...] Mr. Pelayo has already been tried on [place] , which includes combination of L T4 and T3. Unfortunately, he has not noticed any difference in his symptoms and has lead the patient to over replacement with hyperthyroidism. Controlling thyroid levels on [place] is always more difficult . Most of [...] 03/19/2016 Assessment & Plan (04/23/2020 4:42 PM E LEARNING DEVELOPER): Following with radiooncologist, Dr. Camacho Assessment & Plan (04/11/2019 2:15 PM E LEARNING DEVELOPER): Keep TSH around 0.1 with normal free T4 Monitoring TG Pt also following with oncologist. Encounters Date Type Department Care Team Description 05/23/2024 Telephone [facility] [place] [address] [place] [address] Xiomy Yee MA 05/22/2024 12:04 PM E LEARNING DEVELOPER - 05/22/2024 11:59 PM E LEARNING DEVELOPER Hospital Encounter [facility] [address] [place] [id number] Viral URI with cough Discharge Disposition: Discharge to home or self care 05/22/2024 10:00 AM E LEARNING DEVELOPER Office Visit [facility] Medical [facility] [place] [address] [place] [address] Martine Alexander NP Viral URI with cough (Primary Dx) 02/24/2024 8:25 PM E LEARNING DEVELOPER - 02/24/2024 11:59 PM E LEARNING DEVELOPER Hospital Encounter [address] [address] Papillary carcinoma of thyroid (HCC) Discharge Disposition: Discharge to home or self care 02/24/2024 2:50 PM E LEARNING DEVELOPER Lab [facility] Infectious Diseases [address] [place] [address] 02/24/2024 2:00 PM E LEARNING DEVELOPER Office Visit [facility] Endocrinology Metabolism and Lipid [address] [place] [address] Pam Boyle MD Post-surgical hypothyroidism (Primary Dx); Papillary carcinoma of thyroid (HCC) from Last 3 Months Surgical History Surgery Date Site/Laterality Comments IR FINE NEEDLE ASPIRATION W IMAGE GUIDANCE 03/25/2016 N/A IR FINE NEEDLE ASPIRATION W IMAGE GUIDANCE 02/12/2016 N/A TONSILLECTOMY 04/20/1992 - 04/19/1993 US GUIDED BIOPSY LYMPH NODE SUPERFICIAL LEFT 09/30/2018 N/A TOTAL THYROIDECTOMY 04/20/2013 - 04/19/2014 LYMPH NODE DISSECTION 03/20/2016 - 04/19/2016 neck NECK DISSECTION 04/20/2015 - 04/19/2016 Left Medical History Medical History Date Comments Papillary carcinoma of thyroid (HCC) PONV (postoperative nausea and vomiting) x1 in 2013-ok for surgery 2015 Family History Medical History Relation Name Comments Epilepsy Father Diabetes Mother PONV Mother No Known Problems Other 1 Sibling Lung cancer Other 2 Grandpa Relation Name Status Comments Father Alive Mother Alive Other 1 Sibling Alive Other 2 Grandpa Social History Tobacco Use Types Packs/Day Years [...] on file Legal Sex Male 7:21 PM E LEARNING DEVELOPER Gender Identity Male 10/25/2020 12:45 PM CDT Sexual Orientation Straight 04/11/2019 6: 38 AM E LEARNING DEVELOPER 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 Not on file Not on f ile Obstetrics History Last Filed Vital Signs Vital Sign Reading Time Taken Comments Blood Pressure 124/80 05/22/2024 9:49 AM E LEARNING DEVELOPER Pulse 86 05/22/2024 9:49 AM E LEARNING DEVELOPER Temperature 38.1 ??C (100.6 ??F) 05/22/2024 9:[address] Respiratory Rate 18 05/22/2024 9:49 AM E LEARNING DEVELOPER Oxygen Saturation 98% 05/22/2024 9:49 AM E LEARNING DEVELOPER Inhaled Oxygen Concentration - - Weight 83 kg (183 lb) 05/22/2024 9:49 AM E LEARNING DEVELOPER Height 193 cm (6' 4 ) 05/22/2024 9:49 AM E LEARNING DEVELOPER Body Mass Index 22.28 05/22/2024 9:49 AM E LEARNING DEVELOPER Plan of Treatment Health Maintenance Due Date Last Done Comments Hepatitis C Screening 1987 Pneumococcal vaccine <65 (1 of 2 - PCV) 1993 DTaP/Tdap/Td Vaccine (1 - Tdap) 1998 Varicella Vaccines (1 of 2 - 13+ 2-dose series) 01/10/2000 Hepatitis B Screening 2005 Regular Well Visit/Exam 18-64 2005 Zoster Vaccine (1 of 2) 2006 Depression Screening 04/23/2021 04/23/2020, 02/18/2018 Influenza Vaccine (#1) 2023 8, 04/08/2016, 02/24/2011 HPV Vaccines Aged Out No longer eligi ble based on patient's age to complete this topic Procedures Procedure Name Priority Date/Time Associated Diagnosis Comments XR CHEST PA LATERAL 2 VIEWS Schedule TEJAS, Read TEJAS (Appt Today, Awaiting Results) 05/22/2024 12:16 PM E LEARNING DEVELOPER Viral URI with cough REFLEX THYROGLOBULIN, TUMOR MARKER, IA, S Routine 02/24/2024 4:00 PM E LEARNING DEVELOPER THYROGLOBULIN REFLEX TO MS OR IA Routine 02/24/2024 4:00 PM E LEARNING DEVELOPER Papillary carcinoma of thyroid (HCC) TSH Routine 02/24/2024 4:00 PM E LEARNING DEVELOPER Papillary carcinoma of thyroid (HCC) T4, FREE Routine 02/24/2024 4:00 PM E LEARNING DEVELOPER Papillary carcinoma of thyroid (HCC) from Last 3 Months Results * XR Chest PA Lateral 2 Views (05/22/2024 12:16 PM E LEARNING DEVELOPER) Anatomical Region Laterality Modality Body, Chest N/A Computed Radiogr aphy 05/22/2024 9:02 PM E LEARNING DEVELOPER Narrative 05/22/2024 9:03 PM E LEARNING DEVELOPER EXAM DESCRIPTION: XR CHEST PA LATERAL 2 VIEWS REASON FOR STUDY: wheezing ?? Flu symptoms with wheezing x4 days. Non-smoker. ?? TECHNIQUE: 2 ??radiographic view(s) of the chest. COMPARISON: None FINDINGS: LUNGS: ??No focal opacity, pleural effusion, or pneumothorax. ?? HEART/MEDIASTINUM: ??Cardiac silhouette normal in size. Mediastinal and hilar contours appear normal. LINES/TUBES: ??None. BONES: ??No acute osseous abnormality. IMPRESSION: No acute cardiopulmonary abnormality. THIS IS AN ELECTRONICALLY VERIFIED FINAL REPORT 05/22/2024 9:03 PM - Electronically signed by ??Darci SCHULTZ: MARION D: ??05/22/2024 9:03 PM T: ??05/22/2024 9:03 PM Report ID: [id number] Reading Location: ??[id number] Procedure Note Darci Mccarty MD - 05/22/2024 EXAM DESCRIPTION: XR CHEST PA LATERAL 2 VIEWS REASON FOR STUDY: wheezing Flu symptoms with wheezing x4 days. Non-smoker. TECHNIQUE: 2 radiographic view(s) of the chest. COMPARISON: None FINDINGS: LUNGS: No focal opacity, pleural effusion, or pneumothorax. HEART/MEDIASTINUM: Cardiac silhouette normal in size. Mediastinal andhilar contours appear normal. LINES/TUBES: None. BONES: No acute osseous abnormality. IMPRESSION: No acute cardiopulmonary abnormality. THIS IS AN ELECTRONICALLY VERIFIED FINAL REPORT 05/22/2024 9:03 PM - Electronically signed by Darci SCHULTZ: MARION Report ID: [id number] Reading Location: [place] [address] Martine Alexander NP IMG XR PROCEDURES Final Result * Reflex thyroglobulin, tumor marker, IA, S (02/24/2024 4:00 PM E LEARNING DEVELOPER) Thyroglobulin, Tumor Marker <0.1 ng/mL [place] ref [facility] Comment: REFERENCE VALUE Athyrotic <0.1 Intact Thyroid <=33 Thyroglobulin interp See Footnote [facility]GE[facility] Comment: Thyroglobulin (Tg) levels must be interpreted in the context of TSH levels, serial Tg measurements and radioiodine ablation status. Tg levels <0.1 ng/mL in athyrotic individuals on suppressive therapy indicate a minimal risk (<1-2%) of clinically detectable recurrent papillary/follicular thyroid cancer. ADDITIONAL INFORMATION PLEASE NOTE: The given cutoff of <1.8 IU/mL is for the detection of potential thyroglobulin antibody (TgAb) interference in thyroglobulin immunoassays. Thyroglobulin flagging is based on athyrotic reference values. A thyroglobulin antibody (TgAb) reference cutoff of <4.0 IU/mL may be more suitable for the evaluation of autoimmune thyroiditis. The thyroglobulin and thyroglobulin antibody testing methods are immunoenzymatic assays manufactured by [employer]. and performed on the Table8 DXI 800. Values obtained from different assay methods or kits may be different and cannot be used interchangeably. The results cannot be interpreted as absolute evidence for the presence or absence of malignant disease. Test Performed by: [facility] [place] [address] Air Sampler: Radha Sarah Ph.D.; CLIA# [id number] Blood 02/24/2024 4:00 PM E LEARNING DEVELOPER 02/24/2024 8:59 PM E LEARNING DEVELOPER us Pam Connell MD LAB BLOOD ORDERABLES Final Result Performing Organization Address City/State/ZIP Co ar Phone Number [facility] [address] [address] [place] [address] [place] ref [facility] * Thyroglobulin reflex to MS or IA (02/24/2024 4:00 PM E LEARNING DEVELOPER) Anti-thyroglobulin <1.8 <1.8 IUnits/mL [facility] Comment: Thyroglobulin Antibody < 1.8 IU/mL. Thyroglobulin performed by Immunoassay to follow. Test Performed by: [place] [address] Air Sampler: Radha Sarah Ph.D.; CLIA# [id number] Blood 02/24/2024 4:00 PM E LEARNING DEVELOPER 02/24/2024 8:59 PM E LEARNING DEVELOPER Pam Connell MD LAB BLOOD ORDERABLES Final Result Performing Organization Address [facility] Co de Phone Number [place] [place] [address] [place] [address] [facility] ref [facility] * (ABNORMAL) TSH (02/24/2024 4:00 PM E LEARNING DEVELOPER) Thyroid Stimulating Hormone 0.02(L) 0.30 - 4.20 mcIUnit/mL Blood 02/24/2024 4:00 PM E LEARNING DEVELOPER 02/24/2024 8:59 PM E LEARNING DEVELOPER Pam Connell MD LAB BLOOD ORDERABLES Final Result Performing Organization Address [facility] de Phone Number [place] [address] [place] [address] * T4, free (02/24/2024 4:00 PM E LEARNING DEVELOPER) Free T4 1.70 0.90 - 1.70 ng/dL Blood 02/24/2024 4:00 PM E LEARNING DEVELOPER 02/24/2024 8:59 PM E LEARNING DEVELOPER Pam Connell MD LAB BLOOD ORDERABLES Final Result Performing Organization Address [facility] de Phone Number [place]GE[place] [address] [place] [address] from Last 3 Months Insurance [facility] CHOICE PLUS [facility] H[facility]/PPO Address: [address] [place] [address] [facility] Care Teams Sales Agent Relationship Specialty Start Date End Date No, Physician PCP - General 05/22/24 Kaley Camacho MD [address] [facility] [place] [address] Radiation Oncologist Radiation Oncology 01/19/18 Ger Marcos MD [address] [facility] [place] [address] Surgeon Otolaryngology 01/19/18
--- OUTSIDE RECORDS SUMMARY | 2024-05-24 08:57 | XMS_ITS | Referral Summary ---
Author Organization [facility] Address [address] [place] [address] Care Team Providers Care Energy Efficient Site Manager Name Role Phone Kaley Camacho MD Unavailable [phone] Ger Marcos MD Unavailable No, Physician Primary Care Provider [phone] Encounters Date Type Department Care Team Description 05/23/2024 Telephone [facility] [place] [address] [place] [address] Xiomy Yee MA 05/22/2024 12:04 PM BANKER MASON - 05/22/2024 11:59 PM BANKER MASON Hospital Encounter [facility] [address] [place] [address] Viral URI with cough Discharge Disposition: Discharge to home or self care 05/22/2024 10:00 AM BANKER MASON Office Visit [facility] [place] [address] [place] [address] Martine Alexander NP Viral URI with cough (Primary Dx) 02/24/2024 8:25 PM BANKER MASON - 02/24/2024 11:59 PM BANKER MASON Hospital Encounter [address] [address] Papillary carcinoma of thyroid (HCC) Discharge Disposition: Discharge to home or self care 02/24/2024 2:50 PM BANKER MASON Lab [facility] Infectious Diseases [address] [place] [address] [address] [place] [address] 02/24/2024 2:00 PM BANKER MASON Office Visit [facility] Endocrinology Metabolism and Lipid [address] [facility] [address] [place] [address] Pam Boyle MD Post-surgical hypothyroidism (Primary Dx); Papillary carcinoma of thyroid (HCC) from Last 3 Months Allergies No known active allergies Medications multivitamin [...] (10/05/2018): Added automatically from request for surgery [id number] History of papillary adenocarcinoma of thyroid 0 10/05/2018 Overview (10/05/2018): Added automatically from request for surgery [id number] Postoperative hypothyroidism 02/18/2018 Assessment & Plan (04/23/2020 4:41 PM BANKER MASON): Lower Synthroid to 200 mcg daily, but only half a tablet on Thursday Recheck a TSH in 3months Assessment & Plan (04/11/2019 2:14 PM BANKER MASON): Continue Synthroid 200 mcg daily Recheck levels [...] Mr. Pelayo has already been tried on [place] , which includes combination of L T4 and T3. Unfortunately, he has not noticed any difference in his symptoms and has lead the patient to over replacement with hyperthyroidism. Controlling thyroid levels on [place] is always more difficult . Most of [...] 03/19/2016 Assessment & Plan (04/23/2020 4:42 PM BANKER MASON): Following with radiooncologist, Dr. Camacho Assessment & Plan (04/11/2019 2:15 PM BANKER MASON): Keep TSH around 0.1 with normal free T4 Monitoring TG Pt also following with oncologist. 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 on file Not on f ile Last Filed Vital Signs Vital Sign Reading Time Taken Comments Blood Pressure 124/80 05/22/2024 9:49 AM BANKER MASON Pulse 86 05/22/2024 9:49 AM BANKER MASON Temperature 38.1 ??C (100.6 ??F) 05/22/2024 9:[address] Respiratory Rate 18 05/22/2024 9:49 AM BANKER MASON Oxygen Saturation 98% 05/22/2024 9:49 AM BANKER MASON Inhaled Oxygen Concentration - - Weight 83 kg (183 lb) 05/22/2024 9:49 AM BANKER MASON Height 193 cm (6' 4 ) 05/22/2024 9:49 AM BANKER MASON Body Mass Index 22.28 05/22/2024 9:49 AM BANKER MASON Plan of Treatment Not on file Procedures Procedure Name Priority Date/Time Associated Diagnosis Comments XR CHEST PA LATERAL 2 VIEWS Schedule TEJAS, Read TEJAS (Appt Today, Awaiting Results) 05/22/2024 12:16 PM BANKER MASON Viral URI with cough REFLEX THYROGLOBULIN, TUMOR MARKER, IA, S Routine 02/24/2024 4:00 PM BANKER MASON THYROGLOBULIN REFLEX TO MS OR IA Routine 02/24/2024 4:00 PM BANKER MASON Papillary carcinoma of thyroid (HCC) TSH Routine 02/24/2024 4:00 PM BANKER MASON Papillary carcinoma of thyroid (HCC) T4, FREE Routine 02/24/2024 4:00 PM BANKER MASON Papillary carcinoma of thyroid (HCC) from Last 3 Months Results * XR Chest PA Lateral 2 Views (05/22/2024 12:16 PM BANKER MASON) Anatomical Region Laterality Modality Body, Chest N/A Computed Radiogr aphy 05/22/2024 9:02 PM BANKER MASON Narrative 05/22/2024 9:03 PM BANKER MASON EXAM DESCRIPTION: XR CHEST PA LATERAL 2 [...] 05/22/2024 9:03 PM - Electronically signed by ??Draci Mccarty M.D. KH: MARION D: ??05/22/2024 9:03 PM T: ??05/22/2024 9:03 PM Report ID: [id number] Reading Location: ??[id number] Procedure Note Darci Mccarty MD - 05/22/2024 [...] signed by Darci SCHULTZ: MARION Report ID: [id number] Reading Location: [id number] us Mratine Alexander PROJECT ASSISTANT IMG XR PROCEDURES Final Result * Reflex thyroglobulin, tumor marker, IA, S (02/24/2024 4:00 PM BANKER MASON) Thyroglobulin, Tumor Marker <0.1 ng/mL [facility] Lab Comment: REFERENCE VALUE Athyrotic <0.1 Intact [...] testing methods are immunoenzymatic assays manufactured by [employer] and performed on the [employer] DXI 800. Values obtained from different assay methods or kits may be different and cannot be used interchangeably. The results cannot be interpreted as absolute evidence for the presence or absence of malignant disease. Test Performed by: [facility] [address] [place] [address] Plant Care Worker: Radha Sarah Ph.D.; CLIA# [id number] Blood 02/24/2024 4:00 PM BANKER MASON 02/24/2024 8:59 PM BANKER MASON us Pam Connell MD LAB BLOOD ORDERABLES Final Result [place] [address] [address] [facility] [place] [address] [facility] * Thyroglobulin reflex to MS or IA (02/24/2024 4:00 PM BANKER MASON) Anti-thyroglobulin <1.8 <1.8 IUnits/mL [facility] Lab Comment: Thyroglobulin Antibody < 1.8 IU/mL. Thyroglobulin performed by Immunoassay to follow. Test Performed by: [facility] [address] [place] [address] Plant Care Worker: Radha Sarah Ph.D.; CLIA# [id number] Blood 02/24/2024 4:00 PM BANKER MASON 02/24/2024 8:59 PM BANKER MASON Pam Connell MD LAB BLOOD ORDERABLES Final Result Performing Organization Address City/[facility]/[place] [address] [address] [place] [address] [facility] * (ABNORMAL) TSH (02/24/2024 4:00 PM BANKER MASON) Thyroid Stimulating Hormone 0.02(L) 0.30 - 4.20 mcIUnit/mL Blood 02/24/2024 4:00 PM BANKER MASON 02/24/2024 8:59 PM BANKER MASON Pam Connell MD LAB [place] [address] [address] [facility] [place] [address] * T4, free (02/24/2024 4:00 PM BANKER MASON) Free T4 1.70 0.90 - 1.70 ng/dL Blood 02/24/2024 4:00 PM BANKER MASON 02/24/2024 8:59 PM BANKER MASON Pam Conenll MD LAB BLOOD [place] [address] [address] Department [place] [address] from Last 3 Months Insurance [facility] CHOICE PLUS [facility] HMO [facility] H[facility]/PPO Address: [address] [place] [address] [facility] HMO Care Teams Energy Efficient Site Manager Relationship Specialty Start Date End Date No, Physician PCP - General 05/22/24 Kaley Camacho MD [address] [place], [place] [id number] Radiation Oncologist Radiation Oncology 01/19/18 Ger Marcos MD [address] [place] [address] Surgeon Otolaryngology 01/19/18
--- OUTSIDE RECORDS SUMMARY | 2024-05-24 08:57 | XMS_ITS | Continuity of Care Document ---
Author Organization [facility] Address [address] [employer] [facility] [place] [address] Phone Care Team Providers Care Benefits Analyst Name Role Phone Jonnathan Mcpherson MD Unavailable Unavailable Allergies, Adverse Reactions, Alerts Substance Reaction Status Criticality No Known Allergies Active No Inform ation Medications Medication Instructions Dosage Effective Dates (start - stop) Status Comments Synthroid 200 mcg tablet take 1 tablet by oral route every day x 6 days, then 100 mcg on day 7 - Active Procedures Procedure Date PREV VISIT, NEW, AGE 18-39 Advance Directives Directive Yes / No Effective Date File Name No Information Encounters Encounter Description Practice Location Reason(s) For Visit Diagnoses Date Provider Providers Copied on Encounter PREV VISIT, NEW, AGE 18-39 [facility], [address] [place], [place], [id number], tel:[phone] [facility] physical (chief complaint) Encounter for general adult medical examination without abnormal findings Ky De Santiago. [address] [employer] [place], [place], [id number], [place]. tel:[phone] Family History Family Member Type Diagnosis Age At Onset Mother Problem Diabetes mellitus Father Problem Seizure disorder Sister Problem IBS Payers Payer name Insurance type Covered alliance party ID Authoriza tion(s) No Information Social History Type Description Quantity Date Captured Comments Alcohol Use Details beer & wine Caffeine Use Details Unknown Tobacco Use Status Current non-smoker Smoking Status Never smoker Non-Smoking Tobacco Use Details : No Details Available : No Details Available Sex Male Vital Signs Date / Time: Height Weight BMI Pulse Rate Blood Pressure Temperature Respiratory Rate Body Surface Area Head Circumference BMI percentile Pulse Ox Inhaled Ox 5:18 PM 76.00 in 174.20 lbs 21.2 0 kg/m eter (2) 60 /min 120/70 mm[Hg] 98.3 F 16 /min Chief Complaint And Reason For Visit From encounter dated '09/17/2021 17:11'. physical (chief complaint). Description: Pt needs annual physical. Pt has history of papillary thyroid carcinoma s/p total thyroidectomy with multiple lymph node removal. Pt sees radiologist oncologist yearly. Pt had normal TSH and thyroglobulin early this year. Pt overall feels well Pt denies any dysphagia or neck pain, Pt needs physical done for foster parents. Plan Of Treatment Date Type Action Status No Information History Of Present Illness Encounter Date Complaint History Of Prese nt Illness physical Pt needs annual physical. Pt has history of papillary thyroid carcinoma s/p total thyroidectomy with multiple lymph node removal. Pt sees radiologist oncologist yearly. Pt had normal TSH and thyroglobulin early this year. Pt overall feels well Pt denies any dysphagia or neck pain, Pt needs physical done for foster parents. Instructions Date Instruction Additional Infor mation No Information Assessments Type Assessment Date assessment Encounter for genera l adult medical examination without abnormal findings Mental Status Date Cognitive Assessment Orientation - [place] ed to time, place, person, situation.
--- OUTSIDE RECORDS SUMMARY | 2024-05-24 08:57 | XMS_ITS | Encounter Summary ---
Author Organization [facility] Healthcare Address [address] [place] [address] Care Team Providers Care Roller Printer Name Role Phone Kaley Camacho MD Unavailable [phone] Ger Marcos MD Unavailable [phone] No, Physician Primary Care Provider [phone] Encounter Details Date Type Department Care Team (Latest Contact Info) Description 05/22/2024 12:04 PM MUSEUM DOCENT - 05/22/2024 11:59 PM MUSEUM DOCENT Hospital Encounter [facility] [address] [place] [address] Viral URI with cough Discharge Disposition: Discharge to home or self care Social History Tobacco Use Types Packs/Day Years [...] on file Legal Sex Male 7:21 PM MUSEUM DOCENT Gender Identity Male 10/25/2020 12:45 PM CDT Sexual Orientation Straight 04/11/2019 6: 38 AM MUSEUM DOCENT 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 file Not on file Not on f ile documented as of this encounter Medications at Time of Discharge albuterol HFA (PROVENTIL HFA,VENTOLIN HFA,PROAIR HFA) 90 mcg/actuation inhalerIndication s:Viral URI with cough Inhale 2 puffs every 6 (six) hours as needed for shortness of breath 18 g 05/22/2024 glucosam-chondroi tin-diet cb25 116-100 mg capsule Take 2 capsules by mouth every morning LACTOBACILLUS ACIDOPHILUS (PROBIOTIC ACIDOPHILUS ORAL) Take 1 capsule by mouth every morning levothyroxine (SYNTHROID) 175 mcg tablet Take 1 tablet (175 mcg total) by mouth daily 90 tablet 3 02/24/2024 multivitamin tabletIndications :Vitamin Deficiency Prevention Take 1 tablet by mouth every morning documented as of this encounter Discharge Disposition Disposition Code Departure Means Destination Discharge to home or self care documented in this encounter Miscellaneous Notes * Result Encounter Note - Xiomy Yee MA - 05/22/2024 11:59 PM CST PT is aware [facility] DOCENT documented in this encounter Plan of Treatment Not on file documented as of this encounter Procedures Procedure Name Priority Date/Time Associated Diagnosis Comments XR CHEST PA LATERAL 2 VIEWS Schedule TEJAS, Read TEJAS (Appt Today, Awaiting Results) 05/22/2024 12:16 PM MUSEUM DOCENT Viral URI with cough documented in this encounter Results * XR Chest PA Lateral 2 Views (05/22/2024 12:16 PM MUSEUM DOCENT) Anatomical Region Laterality Modality Body, Chest N/A Computed Radiogr aphy 05/22/2024 9:02 PM MUSEUM DOCENT Narrative 05/22/2024 9:03 PM MUSEUM DOCENT EXAM DESCRIPTION: XR CHEST PA LATERAL 2 [...] 9:03 PM - Electronically signed by ??Darci Mccarty M.D. KH: MARION D: ??05/22/2024 9:03 PM T: ??05/22/2024 9:03 PM Report ID: [id number] Reading Location: ??[id number] Procedure Note aDrci Mccarty MD - 05/22/2024 EXAM DESCRIPTION: XR [...] signed by Darci SCHULTZ: MARION Report ID: [id number] Reading Location: [place] [address] Martine Alexander LANG INTERPRETER IMG XR PROCEDURES Final Result documented in this encounter Visit Diagnoses Diagnosis Viral URI with cough documented in this encounter Care Teams Roller Printer Relationship Specialty Start Date End Date No, Physician PCP - General 05/22/24 Kaley Camacho MD [address] [place] [address] Radiation Oncologist Radiation Oncology 01/19/18 Ger Marcos MD [address] [place] [address] Surgeon Otolaryngology 01/19/18 documented as of this encounter
[2024-05-24] MEDS: ONDANSETRON INJ 4 MG/2 ML VIAL (09:10)
[2024-05-24] MEDS: SODIUM CHLORIDE 0.9% IV 1,000 ML 999 ML IV CONT ×2 (09:10→09:11)
[2024-05-24 09:17] LABS: Basophils Percent Auto 0.3 % (0.2-1.2); Eosinophils Absolute Auto 0.1 K/mm3 (0-0.3); Eosinophils Percent Auto 0.8 % (0-4.4); Hematocrit 38.6 % (42.0-52.0); Hemoglobin 13.3 g/dL (14.0-18.0); Immature Granulocyte Absolute 0.02 K/mm3 (0.00-0.031); Immature Granulocyte Percent A 0.2 % (0-0.5); Lymphocytes Absolute Auto 1.09 K/mm3 (0.9-3.2); Lymphocytes Percent Auto 11.7 % (18.3-44.2); Mean Corpuscular HGB Conc 34.5 g/dl (32-36); Mean Corpuscular Hemoglobin 27.7 pg (26-34); Mean Corpuscular Volume 80.4 fl (80-100); Mean Platelet Volume 9.1 fl (7.4-10.4); Monocytes Absolute Auto 0.4 K/mm3 (0.1-0.6); Monocytes Percent Auto 4.2 % (2.6-8.5); Neutrophils Absolute Auto 7.7 K/mm3 (1.3-6.7); Neutrophils Percent Auto 82.8 % (45.5-73.1); Platelet Count Result 185 k/mm3 (150-375); Red Cell Distribution Width 12.3 % (11.5-14.5); White Blood Count 9.3 K/mm3 (4.5-10.0)
[2024-05-24 09:27] LABS: Lactic Acid Reflex 1.5 mmol/L (0.7-2.0)
[2024-05-24 09:28] LABS: Alanine Aminotransferase 36 U/L (6-50); Albumin Level 4.1 g/dL (3.5-5.1); Alkaline Phosphatase 57 U/L (38-126); Anion Gap 7 mmol/L (4-12); Aspartate Amino Transferase 29 U/L (17-59); Bilirubin,Total 0.7 mg/dL (0.2-1.3); Blood Urea Nitrogen 7 mg/dL (9-20); Calcium 8.8 mg/dL (8.4-10.2); Carbon Dioxide 32 mmol/L (22-30); Chloride 98 mmol/L (98-107); Estimated CRCL calculation 154 ml/min; Estimated Glomerular Filt Rate > 60; Glucose 111 mg/dL (65-110); Potassium 3.8 mmol/L (3.4-5.0); Sodium 137 mmol/L (137-145)
[2024-05-24 09:53] LABS: Influenza A QL RT-PCR Positive (Negative); Influenza B QL RT-PCR Negative (Negative); RSV RNA, RT-PCR Negative (Negative); SARS-CoV-2 RNA PCR Negative (Negative)
--- OUTSIDE RECORDS SUMMARY | 2024-05-24 10:28 | XMS_ITS | Clinical Summary ---
Author Organization [facility] Address [address] [place] [address] Care Team Providers Care Set Up Mechanic Automatic Line Name Role Phone Kaley Camacho MD Unavailable [phone] Ger Marcos MD Unavailable No, Physician Primary Care Provider Allergies No known active allergies Medications multivitamin [...] (10/05/2018): Added automatically from request for surgery [id number] History of papillary adenocarcinoma of thyroid 0 10/05/2018 Overview (10/05/2018): Added automatically from request for surgery [id number] Postoperative hypothyroidism 02/18/2018 Assessment & Plan (04/23/2020 4:41 PM WIDTH STRIPPER): Lower Synthroid to 200 mcg daily, but only half a tablet on Thursday Recheck a TSH in 3months Assessment & Plan (04/11/2019 2:14 PM WIDTH STRIPPER): Continue Synthroid 200 mcg daily Recheck levels [...] Mr. Pelayo has already been tried on [place] , which includes combination of L T4 and T3. Unfortunately, he has not noticed any difference in his symptoms and has lead the patient to over replacement with hyperthyroidism. Controlling thyroid levels on [place] is always more difficult . Most of [...] 03/19/2016 Assessment & Plan (04/23/2020 4:42 PM WIDTH STRIPPER): Following with radiooncologist, Dr. Camacho Assessment & Plan (04/11/2019 2:15 PM WIDTH STRIPPER): Keep TSH around 0.1 with normal free T4 Monitoring TG Pt also following with oncologist. Encounters Date Type Department Care Team Description 05/23/2024 Telephone [facility] [place] [address] [place] [address] Xiomy Yee MA 05/22/2024 12:04 PM WIDTH STRIPPER - 05/22/2024 11:59 PM WIDTH STRIPPER Hospital Encounter [facility] [address] [place] [address] Viral URI with cough Discharge Disposition: Discharge to home or self care 05/22/2024 10:00 AM WIDTH STRIPPER Office Visit [facility] Medical [facility] [place] [address] [place] [address] Martine Alexander NP Viral URI with cough (Primary Dx) 02/24/2024 8:25 PM WIDTH STRIPPER - 02/24/2024 11:59 PM WIDTH STRIPPER Hospital Encounter [address] [address] Papillary carcinoma of thyroid (HCC) Discharge Disposition: Discharge to home or self care 02/24/2024 2:50 PM WIDTH STRIPPER Lab [facility] Infectious Diseases 1 [facility] [address] [place] [address] 02/24/2024 2:00 PM WIDTH STRIPPER Office Visit [facility] Endocrinology Metabolism and Lipid 1 [facility] [address] [place] [address] Pam Boyle MD Post-surgical hypothyroidism [...] on file Legal Sex Male 7:21 PM WIDTH STRIPPER Gender Identity Male 10/25/2020 12:45 PM CDT Sexual Orientation Straight 04/11/2019 6: 38 AM WIDTH STRIPPER 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 on file Not on f ile Obstetrics History Last Filed Vital Signs Vital Sign Reading Time Taken Comments Blood Pressure 124/80 05/22/2024 9:49 AM WIDTH STRIPPER Pulse 86 05/22/2024 9:49 AM WIDTH STRIPPER Temperature 38.1 ??C (100.6 ??F) 05/22/2024 9:[address] Respiratory Rate 18 05/22/2024 9:49 AM WIDTH STRIPPER Oxygen Saturation 98% 05/22/2024 9:49 AM WIDTH STRIPPER Inhaled Oxygen Concentration - - Weight 83 kg (183 lb) 05/22/2024 9:49 AM WIDTH STRIPPER Height 193 cm (6' 4 ) 05/22/2024 9:49 AM WIDTH STRIPPER Body Mass Index 22.28 05/22/2024 9:49 AM WIDTH STRIPPER Plan of Treatment Health Maintenance Due Date [...] (Appt Today, Awaiting Results) 05/22/2024 12:16 PM WIDTH STRIPPER Viral URI with cough REFLEX THYROGLOBULIN, TUMOR MARKER, IA, S Routine 02/24/2024 4:00 PM WIDTH STRIPPER THYROGLOBULIN REFLEX TO MS OR IA Routine 02/24/2024 4:00 PM WIDTH STRIPPER Papillary carcinoma of thyroid (HCC) TSH Routine 02/24/2024 4:00 PM WIDTH STRIPPER Papillary carcinoma of thyroid (HCC) T4, FREE Routine 02/24/2024 4:00 PM WIDTH STRIPPER Papillary carcinoma of thyroid (HCC) from Last 3 Months Results * XR Chest PA Lateral 2 Views (05/22/2024 12:16 PM WIDTH STRIPPER) Anatomical Region Laterality Modality Body, Chest N/A Computed Radiogr aphy 05/22/2024 9:02 PM WIDTH STRIPPER Narrative 05/22/2024 9:03 PM WIDTH STRIPPER EXAM DESCRIPTION: XR CHEST PA LATERAL 2 [...] PM T: ??05/22/2024 9:03 PM Report ID: [id number] Reading Location: ??[id number] Procedure Note Darci Mccarty MD - 05/22/2024 [...] signed by Darci SCHULTZ: MARION Report ID: [id number] Reading Location: [place] [address] Martine Alexander NP IMG XR PROCEDURES Final Result * Reflex thyroglobulin, tumor marker, IA, S (02/24/2024 4:00 PM WIDTH STRIPPER) Thyroglobulin, Tumor Marker <0.1 ng/mL [place] ref Lab Comment: REFERENCE VALUE Athyrotic <0.1 [...] testing methods are immunoenzymatic assays manufactured by [employer]. and performed on the [employer] DXI 800. Values obtained from different assay methods or kits may be different and cannot be used interchangeably. The results cannot be interpreted as absolute evidence for the presence or absence of malignant disease. Test Performed by: [facility] [place] [address] Field Map Editor: Radha Sarah Ph.D.; CLIA# [id number] Blood 02/24/2024 4:00 PM WIDTH STRIPPER 02/24/2024 8:59 PM WIDTH STRIPPER us Pam Connell MD LAB BLOOD ORDERABLES Final Result Performing Organization Address City/State/ZIP Co nc Phone Number [facility] [address] [address] [place] [address] [place] ref Lab * Thyroglobulin reflex to MS or IA (02/24/2024 4:00 PM WIDTH STRIPPER) Anti-thyroglobulin <1.8 <1.8 IUnits/mL [facility] Lab Comment: Thyroglobulin Antibody < 1.8 IU/mL. Thyroglobulin performed by Immunoassay to follow. Test Performed by: [place] [address] Field Map Editor: Radha Sarah Ph.D.; CLIA# [id number] Blood 02/24/2024 4:00 PM WIDTH STRIPPER 02/24/2024 8:59 PM WIDTH STRIPPER Pam Connell MD LAB BLOOD ORDERABLES Final Result Performing Organization Address [facility] Co de Phone Number [place] [address] [address] [place] [address] [facility] ref [facility] * (ABNORMAL) TSH (02/24/2024 4:00 PM WIDTH STRIPPER) Thyroid Stimulating Hormone 0.02(L) 0.30 - 4.20 mcIUnit/mL Blood 02/24/2024 4:00 PM WIDTH STRIPPER 02/24/2024 8:59 PM WIDTH STRIPPER Pam Connell MD LAB BLOOD ORDERABLES Final Result Performing Organization Address [facility] de Phone Number [place] [address] [address] [place] [address] * T4, free (02/24/2024 4:00 PM WIDTH STRIPPER) Free T4 1.70 0.90 - 1.70 ng/dL Blood 02/24/2024 4:00 PM WIDTH STRIPPER 02/24/2024 8:59 PM WIDTH STRIPPER Pam Connell MD LAB BLOOD ORDERABLES Final Result Performing Organization Address [facility] de Phone Number [place] [address] [address] [place] [address] from Last 3 Months Insurance [facility] CHO[facility] PLUS [facility] H[facility]/PPO Address: [address] [address] [place] [address] [facility]/PPO Address: [address] [place] [address] Care Teams Set Up Mechanic Automatic Line Relationship Specialty Start Date End Date No, Physician PCP - General 05/22/24 Kaley Camacho MD [address] [facility] [place] [address] Radiation Oncologist Radiation Oncology 01/19/18 Ger Marcos MD [address] [facility] [place] [address] Surgeon Otolaryngology 01/19/18
--- OUTSIDE RECORDS SUMMARY | 2024-05-24 10:28 | XMS_ITS | Clinical Summary ---
Author Organization [facility] [employer] Address [address] [facility] [place] [place] [address] Care Team Providers Care Kitchen Operator Name Role Phone Merrill Wadsworthwn Zbigniew DO Primary Care Provider [phone] Source Comments [facility] [employer],non-owned Affiliates and Associated Physician Practices is amultiple site organization consisting of ambulatory clinics and hospital sitesin [place], [place], [place] and [place]. This disclosure is being madepursuant to the Care Everywhere program and may not contain all information available regarding this patient. Last updated 18.[facility] [employer] Allergies No known active allergies Medications * [...] Comments Blood Pressure 135/77 05/26/2013 3:30 PM BULK FOLDER Pulse 72 05/26/2013 3:30 PM BULK FOLDER Temperature 36.6 ??C (97.9 ??F) 05/26/2013 1:16 PM CS T Respiratory Rate 18 05/26/2013 3:30 PM BULK FOLDER Oxygen Saturation 99% 05/26/2013 3:30 PM BULK FOLDER Inhaled Oxygen Concentration - - Weight 81.4 kg (179 lb 6.4 oz) 05/26/2013 9:20 A M BULK FOLDER Height 193 cm (6' 4 ) 05/26/2013 9:20 AM BULK FOLDER Body Mass Index 21.84 05/26/2013 9:20 AM BULK FOLDER Plan of Treatment Health Maintenance Due Date [...] this topic Medical Devices Implanted Type Area Pensionholder Information Clerk Device Identifier Shelf Expiration Date Model / Serial / Lot Glue Tisseel Fibrin 4ml Implanted:Qty: 1 on 05/26/2013 by Wilder Marcos MD at [facility] [employer] 12/08/2014 [id number] / / [id number] Advance Directives * FULL RESUSCITATION (Latest Code Status on File) Date Activated Date Inactivated Comments 05/19/2013 3:47 PM 05/20/2013 9:26 AM Care Teams Kitchen Operator Relationship Specialty Start Date End Date Vinh Wadsworth DO PCP - General Family Medicine 05/19/13
--- OUTSIDE RECORDS SUMMARY | 2024-05-24 10:28 | XMS_ITS | Encounter Summary ---
Author Organization [facility] Healthcare Address [address] [place] [address] Care Team Providers Care Carpet Sewer Name Role Phone Kaley Camacho MD Unavailable [phone] Ger Marcos MD Unavailable No, Physician Primary Care Provider [phone] Encounter Details Date Type Department Care Team (Late st Contact Info) Description 05/23/2024 Telephone [facility] [place] [address] [place] [address] Xiomy Yee MA Social History [...] on file Legal Sex Male 7:21 PM REPTILE KEEPER Gender Identity Male 10/25/2020 12:45 PM CDT Sexual Orientation Straight 04/11/2019 6: 38 AM REPTILE KEEPER 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 Continue using albuterol inhaler as needed. Follow up with PCP if symptoms persist or worsen. ILE KEEPER * Telephone Encounter - Xiomy Yee MA - 05/23/2024 2:21 PM CST PT is aware ILE KEEPER * Telephone Encounter - Xiomy Yee MA - 05/23/2024 2:21 PM CST ----- Message from Nidia Singh NP sent at 05/23/2024 8:50 AM REPTILE KEEPER ----- Please call patient and let him know chest x-ray was negative for pneumonia. Continue using albuterol inhaler as needed. Follow up with PCP if symptoms persist or worsen. ILE KEEPER documented in this encounter Plan of Treatment Not on file documented as of this encounter Visit Diagnoses Not on filedocumented in this encounter Care Teams Carpet Sewer Relationship Specialty Start Date End Date No, Physician PCP - General 05/22/24 Kaley Camacho MD [address] [place] [address] Radiation Oncologist Radiation Oncology 01/19/18 Ger Marcos MD [address] [place] [address] Surgeon Otolaryngology 01/19/18 documented as of this encounter
--- OUTSIDE RECORDS SUMMARY | 2024-05-24 10:28 | XMS_ITS | Clinical Summary ---
Author Organization [facility] Address [address] [place] [id number] Care Team Providers Care Barber Instructor Name Role Phone Unavailable Primary Care Provider Unavailabl e Social History Tobacco Use Types Packs/Day Years Used Date Smoking Tobacco: Never Assessed Sex and Gender Information Value Date Recorded Sex Assigned at Not on file Legal Sex Male 8:45 AM MUNITIONS FACTORY WORKER Gender Identity Not on file Sexual Orientation [...]
--- OUTSIDE RECORDS SUMMARY | 2024-05-24 10:28 | XMS_ITS | Referral Summary ---
Author Organization [facility] Address [address] [place] [address] Care Team Providers Care Rice Dryer Mechanic Name Role Phone Kaley Camacho MD Unavailable [phone] Ger Marcos MD Unavailable [phone], Physician Primary Care Provider [phone] Encounters Date Type Department Care Team Description 05/23/2024 Telephone [facility] [place] [address] [place] [address] Xiomy Yee MA 05/22/2024 12:04 PM CHIEF DESIGN ENGINEER - 05/22/2024 11:59 PM CHIEF DESIGN ENGINEER Hospital Encounter [facility] [address] [place] [address] Viral URI with cough Discharge Disposition: Discharge to home or self care 05/22/2024 10:00 AM CHIEF DESIGN ENGINEER Office Visit [facility] [place] [address] [place] [address] Martine Alexander NP Viral URI with cough (Primary Dx) 02/24/2024 8:25 PM CHIEF DESIGN ENGINEER - 02/24/2024 11:59 PM CHIEF DESIGN ENGINEER Hospital Encounter [address] [address] Papillary carcinoma of thyroid (HCC) Discharge Disposition: Discharge to home or self care 02/24/2024 2:50 PM CHIEF DESIGN ENGINEER Lab [facility] Infectious Diseases [address] [place] [address] [address] [place] [address] 02/24/2024 2:00 PM CHIEF DESIGN ENGINEER Office Visit [facility] Endocrinology Metabolism and Lipid [address] [facility] [address] [place] [address] Pam Boyle MD Post-surgical hypothyroidism (Primary Dx); [...] (10/05/2018): Added automatically from request for surgery [id number] History of papillary adenocarcinoma of thyroid 0 10/05/2018 Overview (10/05/2018): Added automatically from request for surgery [id number] Postoperative hypothyroidism 02/18/2018 Assessment & Plan (04/23/2020 4:41 PM CHIEF DESIGN ENGINEER): Lower Synthroid to 200 mcg daily, but only half a tablet on Thursday Recheck a TSH in 3months Assessment & Plan (04/11/2019 2:14 PM CHIEF DESIGN ENGINEER): Continue Synthroid 200 mcg daily Recheck levels [...] Mr. Pelayo has already been tried on [place] , which includes combination of L T4 and T3. Unfortunately, he has not noticed any difference in his symptoms and has lead the patient to over replacement with hyperthyroidism. Controlling thyroid levels on [place] is always more difficult . Most of [...] 03/19/2016 Assessment & Plan (04/23/2020 4:42 PM CHIEF DESIGN ENGINEER): Following with radiooncologist, Dr. Camacho Assessment & Plan (04/11/2019 2:15 PM CHIEF DESIGN ENGINEER): Keep TSH around 0.1 with normal free [...] on file Legal Sex Male 7:21 PM CHIEF DESIGN ENGINEER Gender Identity Male 10/25/2020 12:45 PM CDT Sexual Orientation Straight 04/11/2019 6: 38 AM CHIEF DESIGN ENGINEER Occupation Industry Job Start Date Job End Date [employer] Not on file Not on file Not on f ile Last Filed Vital Signs Vital Sign Reading Time Taken Comments Blood Pressure 124/80 05/22/2024 9:49 AM CHIEF DESIGN ENGINEER Pulse 86 05/22/2024 9:49 AM CHIEF DESIGN ENGINEER Temperature 38.1 ??C (100.6 ??F) 05/22/2024 9:[address] Respiratory Rate 18 05/22/2024 9:49 AM CHIEF DESIGN ENGINEER Oxygen Saturation 98% 05/22/2024 9:49 AM CHIEF DESIGN ENGINEER Inhaled Oxygen Concentration - - Weight 83 kg (183 lb) 05/22/2024 9:49 AM CHIEF DESIGN ENGINEER Height 193 cm (6' 4 ) 05/22/2024 9:49 AM CHIEF DESIGN ENGINEER Body Mass Index 22.28 05/22/2024 9:49 AM CHIEF DESIGN ENGINEER Plan of Treatment Not on file Procedures Procedure Name Priority Date/Time Associated Diagnosis Comments XR CHEST PA LATERAL 2 VIEWS Schedule TEJAS, Read TEJAS (Appt Today, Awaiting Results) 05/22/2024 12:16 PM CHIEF DESIGN ENGINEER Viral URI with cough REFLEX THYROGLOBULIN, TUMOR MARKER, IA, S Routine 02/24/2024 4:00 PM CHIEF DESIGN ENGINEER THYROGLOBULIN REFLEX TO MS OR IA Routine 02/24/2024 4:00 PM CHIEF DESIGN ENGINEER Papillary carcinoma of thyroid (HCC) TSH Routine 02/24/2024 4:00 PM CHIEF DESIGN ENGINEER Papillary carcinoma of thyroid (HCC) T4, FREE Routine 02/24/2024 4:00 PM CHIEF DESIGN ENGINEER Papillary carcinoma of thyroid (HCC) from Last 3 Months Results * XR Chest PA Lateral 2 Views (05/22/2024 12:16 PM CHIEF DESIGN ENGINEER) Anatomical Region Laterality Modality Body, Chest N/A Computed Radiogr aphy 05/22/2024 9:02 PM CHIEF DESIGN ENGINEER Narrative 05/22/2024 9:03 PM CHIEF DESIGN ENGINEER EXAM DESCRIPTION: XR CHEST PA LATERAL 2 [...] PM T: ??05/22/2024 9:03 PM Report ID: [id number] Reading Location: ??[id number] Procedure Note Darci Mccarty MD - 05/22/2024 [...] signed by Darci SCHULTZ: MARION Report ID: [id number] Reading Location: [id number] us Martine Alexander DIRECTOR OF DATABASE MARKETING IMG XR PROCEDURES Final Result * Reflex thyroglobulin, tumor marker, IA, S (02/24/2024 4:00 PM CHIEF DESIGN ENGINEER) Thyroglobulin, Tumor Marker <0.1 ng/mL [facility] Comment: REFERENCE VALUE Athyrotic <0.1 [...] testing methods are immunoenzymatic assays manufactured by [employer] and performed on the Teliportme DXI 800. Values obtained from different assay methods or kits may be different and cannot be used interchangeably. The results cannot be interpreted as absolute evidence for the presence or absence of malignant disease. Test Performed by: [facility] [address] [place] [address] Estimator And Drafter Supervisor: Radha Sarah Ph.D.; CLIA# [id number] Blood 02/24/2024 4:00 PM CHIEF DESIGN ENGINEER 02/24/2024 8:59 PM CHIEF DESIGN ENGINEER us Pam Connell MD LAB BLOOD ORDERABLES Final Result [place] [address] [address] [facility] [address] [facility] * Thyroglobulin reflex to MS or IA (02/24/2024 4:00 PM CHIEF DESIGN ENGINEER) Anti-thyroglobulin <1.8 <1.8 IUnits/mL [facility] Comment: Thyroglobulin Antibody < 1.8 IU/mL. Thyroglobulin performed by Immunoassay to follow. Test Performed by: [facility] [address] [place] [address] Estimator And Drafter Supervisor: Radha Sarah Ph.D.; CLIA# [id number] Blood 02/24/2024 4:00 PM CHIEF DESIGN ENGINEER 02/24/2024 8:59 PM CHIEF DESIGN ENGINEER Pam Connell MD LAB BLOOD ORDERABLES Final Result Performing Organization Address City/[facility]/[place] [address] [place] [address] [facility] * (ABNORMAL) TSH (02/24/2024 4:00 PM CHIEF DESIGN ENGINEER) Thyroid Stimulating Hormone 0.02(L) 0.30 - 4.20 mcIUnit/mL Blood 02/24/2024 4:00 PM CHIEF DESIGN ENGINEER 02/24/2024 8:59 PM CHIEF DESIGN ENGINEER Pam Connell MD LAB [place] [address] [address] [facility] [address] * T4, free (02/24/2024 4:00 PM CHIEF DESIGN ENGINEER) Free T4 1.70 0.90 - 1.70 ng/dL Blood 02/24/2024 4:00 PM CHIEF DESIGN ENGINEER 02/24/2024 8:59 PM CHIEF DESIGN ENGINEER Pam Connell MD LAB BLOOD [place] [address] [address] [place] [address] from Last 3 Months Insurance [facility] HMO [facility] H[facility]PPO Address: [address] [place] [address] [facility] HMO Care Teams Rice Dryer Mechanic Relationship Specialty Start Date End Date No, Physician PCP - General 05/22/24 Kaley Camacho MD [address] [place], [place] [id number] Radiation Oncologist Radiation Oncology 01/19/18 Ger Marcos MD [address] [place] [address] Surgeon Otolaryngology 01/19/18
--- OUTSIDE RECORDS SUMMARY | 2024-05-24 10:28 | XMS_ITS | Referral Summary ---
Author Organization [facility] Address [address] [place] [address] Care Team Providers Care National Sales Trainer Name Role Phone Merrill Wadsworthwn Zbigniew DO Primary Care Provider [phone] Source Comments [facility],non-owned Affiliates and Associated Physician Practices is amultiple site organization consisting of ambulatory clinics and hospital sitesin [place], [place], [place] and [place]. This disclosure is being madepursuant to the Care Everywhere program and may not contain all information available regarding this patient. Last updated 18.[facility] Allergies No known active allergies Medications * [...] Comments Blood Pressure 135/77 05/26/2013 3:30 PM COMMERCIAL CARPENTER Pulse 72 05/26/2013 3:30 PM COMMERCIAL CARPENTER Temperature 36.6 ??C (97.9 ??F) 05/26/2013 1:16 PM CS T Respiratory Rate 18 05/26/2013 3:30 PM COMMERCIAL CARPENTER Oxygen Saturation 99% 05/26/2013 3:30 PM COMMERCIAL CARPENTER Inhaled Oxygen Concentration - - Weight 81.4 kg (179 lb 6.4 oz) 05/26/2013 9:20 A M COMMERCIAL CARPENTER Height 193 cm (6' 4 ) 05/26/2013 9:20 AM COMMERCIAL CARPENTER Body Mass Index 21.84 05/26/2013 9:20 AM COMMERCIAL CARPENTER Functional Status Functional Status Response Date of [...] on file Medical Devices Implanted Type Area Floral Designer Device Identifier Shelf Expiration Date Model / Serial / Lot Glue Tisseel Fibrin 4ml Implanted:Qty: 1 on 05/26/2013 by Wilder Marcos MD at [facility] [place] [employer] 12/08/2014 [id number] / / [id number] Advance Directives * FULL RESUSCITATION (Latest Code Status on File) Date Activated Date Inactivated Comments 05/19/2013 3:47 PM 05/20/2013 9:26 AM Care Teams National Sales Trainer Relationship Specialty Start Date End Date Vinh Wadsworth DO PCP - General Family Medicine 05/19/13
--- OUTSIDE RECORDS SUMMARY | 2024-05-24 10:28 | XMS_ITS ---
Author Organization [facility] Address [address] [place] [address] Care Team Providers Care Medical Assistant Prn Name Role Phone Kaley Camacho MD Unavailable [phone] Ger Marcos MD Unavailable No, Physician Primary Care Provider Active Problems Problem Noted Date Diagnosed Date Palpitations 06/12/2021 Lipid screening 06/12/2021 Lymphadenopathy of head and neck region 10/06/19 19 Overview (10/05/2018): Added automatically from request for surgery [id number] History of papillary adenocarcinoma of thyroid 0 10/05/2018 Overview (10/05/2018): Added automatically from request for surgery [id number] Postoperative hypothyroidism 02/18/2018 Assessment & Plan (04/23/2020 4:41 PM DIRECTOR OF STRATEGIC PROGRAMS): Lower Synthroid to 200 mcg daily, but only half a tablet on Thursday Recheck a TSH in 3months Assessment & Plan (04/11/2019 2:14 PM DIRECTOR OF STRATEGIC PROGRAMS): Continue Synthroid 200 mcg daily Recheck levels [...] Mr. Pelayo has already been tried on [place] , which includes combination of L T4 and T3. Unfortunately, he has not noticed any difference in his symptoms and has lead the patient to over replacement with hyperthyroidism. Controlling thyroid levels on [place] is always more difficult . Most of [...] 03/19/2016 Assessment & Plan (04/23/2020 4:42 PM DIRECTOR OF STRATEGIC PROGRAMS): Following with radiooncologist, Dr. Camacho Assessment & Plan (04/11/2019 2:15 PM DIRECTOR OF STRATEGIC PROGRAMS): Keep TSH around 0.1 with normal free T4 Monitoring TG Pt also following with oncologist. Current Oncology Plans No current plan information found. Past Plans No past plan information found. Radiation Treatments * No radiation treatments are documented for this patient in [facility]. Treatments may have been administered in another system. Lifetime Dose Tracking * Chemical Lifetime Dose Automatic Entry Manual Entr y DLP 336 mGycm 336 mGycm 0 mGycm
--- OUTSIDE RECORDS SUMMARY | 2024-05-24 10:28 | XMS_ITS | Patient Health Summary ---
Author Organization [facility] Address [address] [place] [address] Care Team Providers Care Dumper Bulk System Name Role Phone Merrill Wadsworthwchet Coy DO Primary Care Provider [phone] Note from [facility] [place]non-owned Affiliates and Associated Physician Practices is amultiple site organization consisting of ambulatory clinics and hospital sitesin [place], [place], [place] and [place]. This disclosure is being madepursuant to the Care Everywhere program and may not contain all information available regarding this patient. Last updated 18.[facility] [place] Allergies No known active allergies Medications * [...] Comments Blood Pressure 135/77 05/26/2013 3:30 PM LEARNING FACILITATOR Pulse 72 05/26/2013 3:30 PM LEARNING FACILITATOR Temperature 36.6 ??C (97.9 ??F) 05/26/2013 1:16 PM CS T Respiratory Rate 18 05/26/2013 3:30 PM LEARNING FACILITATOR Oxygen Saturation 99% 05/26/2013 3:30 PM LEARNING FACILITATOR Inhaled Oxygen Concentration - - Weight 81.4 kg (179 lb 6.4 oz) 05/26/2013 9:20 A M LEARNING FACILITATOR Height 193 cm (6' 4 ) 05/26/2013 9:20 AM LEARNING FACILITATOR Body Mass Index 21.84 05/26/2013 9:20 AM LEARNING FACILITATOR Medical Devices Implanted Type Area Jewelry Technician Device Identifier Shelf Expiration Date Model / Serial / Lot Glue Tisseel Fibrin 4ml Implanted:Qty: 1 on 05/26/2013 by Wilder Marcos MD at [facility] Neck [employer] 12/08/2014 [id number] / / [id number] Procedures * US SOFT TISSUE HEAD NECK(Performed [...] frequency ultrasound of the thyroid performed by technologist development including color Doppler imaging and DICOM image [...] frequency ultrasound of the thyroid performed by technologist development including color Doppler imaging and DICOM image [...] METS SCAN WHOLE BODY (03/01/2014 2:08 PM LEARNING FACILITATOR) Only the most recent of3 resultswithin the time period is included. Anatomical Region Laterality Modality Chest Nuclear Medicine 03/01/2014 2:36 PM LEARNING FACILITATOR Impressions 03/01/2014 2:42 PM LEARNING FACILITATOR No metastatic disease or residual thyroid tissue identified. No significant change. Narrative 03/01/2014 2:42 PM LEARNING FACILITATOR Nuclear medicine radioiodine whole-body scan: HISTORY: Thyroid [...] THERAPY BY ORAL ADM (02/27/2014 2:58 PM LEARNING FACILITATOR) Only the most recent of2 resultswithin the time period is included. Anatomical Region Laterality Modality Nuclear Medicine 02/27/2014 3:22 PM LEARNING FACILITATOR Impressions 02/27/2014 3:22 PM LEARNING FACILITATOR Therapeutic radiopharmaceutical administration as discussed above. Narrative 02/27/2014 3:22 PM LEARNING FACILITATOR Nuclear medicine radioactive iodine radiopharmaceutical therapeutic administration [...] * PULMONARY/RESPIRATORY REPORT ORDER (05/22/2013 3:28 AM LEARNING FACILITATOR) Narrative 05/22/2013 3:28 AM LEARNING FACILITATOR Ordered by an unspecified provider. Transcriptions Document, Scanned - 05/22/2013 3:28 AM CST Scanned Document RESPIRATORY THERAPY ORDERABLES * LAB RESULTS ORDER (05/22/2013 3:28 AM LEARNING FACILITATOR) Narrative 05/22/2013 3:28 AM LEARNING FACILITATOR Ordered by an unspecified provider. Transcriptions Document, Scanned - 05/22/2013 3:28 AM CST Scanned Document LAB - THERAPEUTIC DR LIN MONITORING ORDERABLES * (ABNORMAL) CALCIUM IONIZED BLOOD (05/20/2013 4:19 AM LEARNING FACILITATOR) Calcium Ionized 1.05(L) 1.12 - 1.32 mmol/L 05/20/2013 4:50 AM [facility] pH 7.37 7.35 - 7.45 pH 05/20/2013 4:50 AM [facility] Blood BLOOD SPECIMEN SUBMITTED IN HEPARINIZED COLLECTION TUBE / Unknown Lab Venipuncture / Unknown 05/20/2013 4:19 AM LEARNING FACILITATOR 05/20/2013 4:42 AM LEARNING FACILITATOR Wilder Marcos MD LAB - CHEMISTRY KEISHA ORTIZ [facility] [address] [place] [address] * GROSS + MICRO EXAM (STL) (05/19/2013 9:50 AM LEARNING FACILITATOR) Case Report Surgical Pathology Report ? Case: [id number] ? -------- Authorizing Provider: ??Wilder Marcos MD [...] dissection zone 2,3,4 ? 05/23/2013 3:27 PM LEARNING FACILITATOR [facility] Final Diagnosis Thyroid, left, excision: [...] Metastasis: Not applicable BUSHRA/hero 05/23/2013 3:27 PM [facility] Clinical History Preoperative Diagnosis: Papillary thyroid carcinoma, cervical lymphadenopathy Postoperative Diagnosis: Same Clinical Findings: Same 05/23/2013 3:27 PM LEARNING FACILITATOR [facility] Gross Description Six portions are [...] greatest dimension containing yellow colloid-like material. ??A signs sales representative sections of each node is submitted. [...] - Left lateral neck dissection zone 4 RI/cw 05/23/2013 3:27 PM [facility] Microscopic Description Microscopic examination corroborates the diagnosis. DH/hero 05/23/2013 3:27 PM [facility] Testing Performed By Not dictated 05/23/2013 3:27 PM [facility] Synoptic Report 05/23/2013 3:27 PM [facility] Pathology/Cytology SPECIMEN FROM THYROID OBTAINED BY TOTAL THYROIDECTOMY / Unknown 05/19/2013 9:50 AM LEARNING FACILITATOR 05/19/2013 3:23 PM LEARNING FACILITATOR Miscellaneous samples (specimen) ENTIRE LYMPH NODE / Unknown 05/19/2013 9:50 AM LEARNING FACILITATOR 05/19/2013 3:23 PM LEARNING FACILITATOR Miscellaneous samples (specimen) ENTIRE LYMPH NODE / Unknown 05/19/2013 9:50 AM LEARNING FACILITATOR 05/19/2013 3:23 PM LEARNING FACILITATOR Miscellaneous samples (specimen) ENTIRE LYMPH NODE / Unknown 05/19/2013 9:50 AM LEARNING FACILITATOR 05/19/2013 3:23 PM LEARNING FACILITATOR Miscellaneous samples (specimen) ENTIRE LYMPH NODE / Unknown 05/19/2013 9:50 AM LEARNING FACILITATOR 05/19/2013 3:23 PM LEARNING FACILITATOR Miscellaneous samples (specimen) ENTIRE LYMPH NODE / Unknown 05/19/2013 9:50 AM LEARNING FACILITATOR 05/19/2013 3:23 PM LEARNING FACILITATOR Wilder Marcos MD LAB - PATHOLOGY/CYTO LOGY ORDERABLES [facility] [address] [place] [address] * (ABNORMAL) CBC W AUTO DIFFERENTIAL (05/09/2013 7:36 AM LEARNING FACILITATOR) WBC 4.9 4.4 - 10.7 x10^9/L 05/09/2013 7:51 AM [facility] RBC 5.10 3.80 - 5.40 x10^12/L 05/09/2013 7:51 AM [facility] Hemoglobin 14.5 12.0 - 17.6 gm/dL 05/09/2013 7:51 AM [facility] Hematocrit 40.0 35.2 - 51.7 % 05/09/2013 7:51 AM [facility] MCV 78.4(L) 80.7 - 98.3 fl 05/09/2013 7:51 AM [facility] MCH 28.4 26.7 - 34.0 pg 05/09/2013 7:51 AM [facility] MCHC 36.3(H) 30.8 - 35.9 gm/dL 05/09/2013 7:51 AM [facility] Platelet Count 227 153 - 416 x10^9/L 05/09/2013 7:51 AM [facility] RDW-CV 12.9 12.1 - 14.9 % 05/09/2013 7:51 AM [facility] MPV 9.4 9.4 - 12.9 fl 05/09/2013 7:51 AM [facility] Neutrophils % 53.3 44.0 - 73.0 % 05/09/2013 7:51 AM [facility] Lymphocytes % 37.4 20.0 - 43.0 % 05/09/2013 7:51 AM [facility] Monocytes % 6.3 5.0 - 13.0 % 05/09/2013 7:51 AM [facility] Eosinophils % 2.2 0.0 - 6.0 % 05/09/2013 7:51 AM LEARNING FACILITATOR [facility] Basophils % 0.6 0.0 - 2.0 % 05/09/2013 7:51 AM [facility] Immature Granulocytes 0.2 0 - 1 % 05/09/2013 7:51 AM [facility] Neutrophil Absolute 2.62 2.01 - 7.14 x10^9/L 05/09/2013 7:51 AM [facility] Lymphocytes Absolute 1.84 1.07 - 3.94 x10^9/L 05/09/2013 7:51 AM [facility] Monocytes Absolute 0.31 0.26 - 1.07 x10^9/L 05/09/2013 7:51 AM [facility] Eosinophils Absolute 0.11 0 - 0.47 x10^9/L 05/09/2013 7:51 AM [facility] Basophils Absolute 0.03 0 - 0.08 x10^9/L 05/09/2013 7:51 AM [facility] Immature Granulocytes Absolute 0.01 0.00 - 0.06 x10^9/L 05/09/2013 7:51 AM [facility] nRBC Auto 0 /100 WBC 05/09/2013 7:51 AM [facility] Blood BLOOD SPECIMEN / Unknown Lab Venipuncture / Unknown 05/09/2013 7:36 AM LEARNING FACILITATOR 05/09/2013 7:[address] [facility] Ger Diaz DO LAB - HEMATOLOGY ORD ERABLES [facility] [address] [place] [address] * FINE NEEDLE ASPIRATION (STL) (04/05/2013 2:28 PM LEARNING FACILITATOR) Case Report Fine Needle Aspiration Report ? Case: [id number] ? Authorizing Provider: ??Wilder Marcos MD ?Ordering Provider: ?? Wilder Marcos MD ? Ordering Location: ? [facility] CT SCAN ? Collected: ? 04/05/2013 ??2:28 PM ? Pathologist: ? Idalia Gage MD ?Received: ?04/05/2013 ??2:28 PM ?Signed Out: ?04/06/2013 ??6:00 PM (Final) ? Specimen: ?Thyroid, LT ? 04/06/2013 6:00 PM LEARNING FACILITATOR [facility] Final Diagnosis Left thyroid, 5 x 3 x 3 cm nodule, ultrasound guided FNA biopsy x3 (three immediate evaluations): ? -Papillary carcinoma NM/dak 04/06/2013 6:00 PM [facility] Clinical History Left thyroid nodule, 5 x 3 x 3 cm with microcalcifications 04/06/2013 6:00 PM [facility] Gross Description Six alcohol fixed [...] and internuclear inclusions . 04/06/2013 6:00 PM [facility] Microscopic Description Microscopic examination corroborates the diagnosis and intraprocedural interpretations. The smears are abundantly cellular, with epithelial cells present in variably sized sheets and occasional three-dimensional grooves. Abundant nuclear grooves and internuclear pseudo inclusions are readily identified. Dr. Carmona has reviewed this case and concurs with the diagnosis. 04/06/2013 6:00 PM [facility] Testing Performed By [facility], [facility], [address] [place] [address]. [id number] 04/06/2013 6:00 PM [facility] Synoptic Report 04/06/2013 6:00 PM [facility] Pathology/Cytolo gy SPECIMEN FROM THYROID OBTAINED BY THYROIDECTOMY / Unknown 04/05/2013 2:28 PM LEARNING FACILITATOR 04/05/2013 2:28 PM LEARNING FACILITATOR Wilder Marcos MD LAB - PATHOLOGY/CYTO LOGY ORDERABLES [facility] [address] [place] [id number] * US NDL GUID THYROID BX/FNA LT (04/05/2013 2:06 PM LEARNING FACILITATOR) Anatomical Region Laterality Modality Ultrasound 04/05/2013 4:55 PM LEARNING FACILITATOR Impressions 04/05/2013 6:06 PM LEARNING FACILITATOR Left thyroid nodule fine-needle aspiration. Edited by Elin Bartholomew on 04/05/2013 5:58 PM Narrative 04/05/2013 6:06 PM LEARNING FACILITATOR ULTRASOUND-GUIDED THYROID NODULE FINE NEEDLE ASPIRATION HISTORY: [...] TISSUE NECK WITH CONTRAST (04/05/2013 1:26 PM LEARNING FACILITATOR) Anatomical Region Laterality Modality Head Computed Tomogra phy 04/05/2013 4:57 PM LEARNING FACILITATOR Impressions 04/06/2013 12:15 PM LEARNING FACILITATOR Left cervical and supraclavicular adenopathy. Large left thyroid nodule. If the current thyroid biopsy is positive for thyroid malignancy then an I-131 uptake and scan should be performed for workup of the adenopathy. Edited by Elin Bartholomew on 04/05/2013 6:15 PM Narrative 04/06/2013 12:[address] SCAN OF THE NECK WITH CONTRAST [...] Wilder Marcos MD CT ORDERABLES Care Teams Dumper Bulk System Relationship Specialty Start Date End Date Vinh Wadsworth DO PCP - General Family Medicine 05/19/13
--- OUTSIDE RECORDS SUMMARY | 2024-05-24 10:28 | XMS_ITS | Continuity of Care Document ---
Author Organization [facility] Address [address] [facility] [place] [address] Phone Care Team Providers Care Public Policy Coordinator Name Role Phone Jonnathan Mcpherson MD Unavailable [...] on Encounter PREV VISIT, NEW, AGE 18-39 [facility], [address], [place], [id number], tel:[phone] [facility] physical (chief complaint) Encounter for general adult medical examination without abnormal findings [place] De Santiago. [address] [place], [place], [id number], [place]. tel:[phone] Family History Family Member Type Diagnosis Age At Onset Mother Problem Diabetes mellitus Father Problem Seizure disorder Sister Problem IBS Payers Payer name Insurance type Covered libertarian ID Authoriza tion(s) No Information Social History [...] Mental Status Date Cognitive Assessment Orientation - Marne ed to time, place, person, situation.
--- OUTSIDE RECORDS SUMMARY | 2024-05-24 10:28 | XMS_ITS | Encounter Summary ---
Author Organization [facility] Address [address] [place] [id number] Care Team Providers Care Emergency Medical Services Coordinator Name Role Phone Kaley Camacho MD Unavailable [phone] Ger Marcos MD Unavailable [phone] No, Physician Primary Care Provider [phone] Encounter Details Date Type Department Care Team (Latest Contact Info) Description 05/22/2024 12:04 PM SOCK EXAMINER - 05/22/2024 11:59 PM SOCK EXAMINER Hospital Encounter [facility] [address] [place] [address] Viral URI with cough Discharge Disposition: Discharge [...] on file Legal Sex Male 7:21 PM SOCK EXAMINER Gender Identity Male 10/25/2020 12:45 PM CDT Sexual Orientation Straight 04/11/2019 6: 38 AM SOCK EXAMINER 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 Not on file Not [...] 05/22/2024 11:59 PM CST PT is aware EXAMINER documented in this encounter Plan of Treatment Not on file documented as of this encounter Procedures Procedure Name Priority Date/Time Associated Diagnosis Comments XR CHEST PA LATERAL 2 VIEWS Schedule TEJAS, Read TEJAS (Appt Today, Awaiting Results) 05/22/2024 12:16 PM SOCK EXAMINER Viral URI with cough documented in this encounter Results * XR Chest PA Lateral 2 Views (05/22/2024 12:16 PM SOCK EXAMINER) Anatomical Region Laterality Modality Body, Chest N/A Computed Radiogr aphy 05/22/2024 9:02 PM SOCK EXAMINER Narrative 05/22/2024 9:03 PM SOCK EXAMINER EXAM DESCRIPTION: XR CHEST PA LATERAL 2 [...] PM T: ??05/22/2024 9:03 PM Report ID: [id number] Reading Location: ??[id number] Procedure Note Darci Mccarty MD - 05/22/2024 [...] signed by Darci SCHULTZ: MARION Report ID: [id number] Reading Location: [place] [address] Martine Alexander CUTTING ROOM SUPERVISOR IMG XR PROCEDURES Final Result documented in this encounter Visit Diagnoses Diagnosis Viral URI with cough documented in this encounter Care Teams Emergency Medical Services Coordinator Relationship Specialty Start Date End Date No, Physician PCP - General 05/22/24 Kaley Camacho MD [address] [place] [address] Radiation Oncologist Radiation Oncology 01/19/18 Ger Marcos MD [address] [place] [address] Surgeon Otolaryngology 01/19/18 documented as of this encounter
--- NOTE | 2024-05-24 10:29 | ED_ITS ---
HPI - General Adult General Chief complaint: Unspecified Stated complaint: weakness, exposed to flu, vomiting, fever Time Seen by Provider: 05/24/24 08:59 Source: patient and family Mode of arrival: ambulatory Limitations: no limitations History of Present Illness HPI narrative: 39-year-old with a history of thyroid cancer status post lymph node resection several years ago presents to the ER with the complaints of not feeling well, nausea vomiting. Was seen 3 days ago at urgent care. This morning he started vomiting and nauseated denies any abdominal pain has diarrhea Onset (ago): day(s) (1) Severity: moderate Pain Consistency: constant Exacerbating factors: none Associated symptoms: denies other symptoms Related Data Home Medications ?Medication ?Instructions ?Recorded ?Confirmed ?Last Taken ?Type levothyroxine 200 mcg tablet 175 mcg PO DAILY 05/16/21 05/24/24 05/23/24 History (Synthroid) albuterol sulfate 90 mcg/actuation 1 puff inhalation PRN PRN 05/24/24 05/24/24 05/24/24 History aerosol inhaler shortness of breath or wheezing Allergies Allergy/AdvReac Type Severity Reaction Status Date / Time No Known Allergies Allergy Verified 05/24/24 09:19 Review of Systems 2 Review of Systems: All systems reviewed & are unremarkable except as noted in HPI and below Constitutional: Constitutional: Reports no additional constitutional complaints Eyes: Eyes: Reports no additional eye complaints ENT: Reports system reviewed and no additional complaints, except as documented Cardiovascular: Cardiovascular: Reports no additional cardiovascular complaints Respiratory: Respiratory: Reports no additional respiratory complaints Gastrointestinal: Gastrointestinal: Reports as per HPI Musculoskeletal: Musculoskeletal: Reports no additional musculoskeletal complaints [facility] Family History Family History Father Family history of seizure disorder Social History Social History Smoking status: Never smoker Exam 2 Narrative: GENERAL: Well-appearing, well-nourished, and in no acute distress. HEAD: Normocephalic, atraumatic. EYES: PERRLA and EOMI. NECK: Supple. CHEST: Clear to auscultation. No respiratory distress. HEART: Regular rate and rhythm. No murmur heard. Normal peripheral pulses. ABDOMEN: Soft, nontender, nondistended, normal active bowel sounds. EXTREMITIES: Normal range of motion. No edema. SKIN: Warm, dry, no rash. NEURO: No focal deficits. Alert and oriented x3. PSYCH: Normal mood and affect. Course Course Emergency Course: Patient feeling much better informed him and his about the lab work. Advised him to drink more fluids, rest take Tamiflu as prescribed Vital Signs Vital signs: Vital Signs Temperature 36.6 C 05/24/24 09:01 Pulse Rate 65 05/24/24 09:01 Respiratory Rate 19 05/24/24 09:01 Blood Pressure 117/81 05/24/24 09:01 Pulse Oximetry 100 05/24/24 09:01 Temperature 36.6 C 05/24/24 09:01 Pulse Rate 58 L 05/24/24 10:12 Respiratory Rate 11 L 05/24/24 10:12 Blood Pressure 120/80 05/24/24 10:12 Pulse Oximetry 100 05/24/24 10:12 Medical Decision Making Medical Records Medical records reviewed: Yes I reviewed the external patient's medical records. Vital Signs Vital Signs: Vital Signs Temperature 36.6 C 05/24/24 09:01 Pulse Rate 65 05/24/24 09:01 Respiratory Rate 19 05/24/24 09:01 Blood Pressure 117/81 05/24/24 09:01 Pulse Oximetry 100 05/24/24 09:01 Temperature 36.6 C 05/24/24 09:01 Pulse Rate 58 L 05/24/24 10:12 Respiratory Rate 11 L 05/24/24 10:12 Blood Pressure 120/80 05/24/24 10:12 Pulse Oximetry 100 05/24/24 10:12 Lab Data 05/24/24 09:12 05/24/24 09:11 Labs: Lab Results 05/24/24 05/24/24 Range/Units 09:11 09:12 WBC 9.3 (4.5-10.0) K/mm3 RBC 4.80 (4.6-6.20) M/mm3 Hgb 13.3 L (14.0-18.0) g/dL Hct 38.6 L (42.0-52.0) % MCV 80.4 (80-100) fl MCH 27.7 (26-34) pg MCHC 34.5 (32-36) g/dl RDW 12.3 (11.5-14.5) % Plt Count 185 (150-375) k/mm3 MPV 9.1 (7.4-10.4) fl Immature Gran % (Auto) 0.2 (0-0.5) % Neut % (Auto) 82.8 H (45.5-73.1) % Lymph % (Auto) 11.7 L (18.3-44.2) % [place] % (Auto) 4.2 (2.6-8.5) % Eos % (Auto) 0.8 (0-4.4) % Baso % (Auto) 0.3 (0.2-1.2) % Lymph # (Auto) 1.09 (0.9-3.2) K/mm3 [place] # (Auto) 0.4 (0.1-0.6) K/mm3 Eos # (Auto) 0.1 (0-0.3) K/mm3 Baso # (Auto) 0.0 (0.0-0.1) K/mm3 Abs Immat Gran (auto) 0.02 (0.00-0.031) K/mm3 Absolute Neuts (auto) 7.7 H (1.3-6.7) K/mm3 Absolute Nucleated RBC 0.000 (0.0-0.012) K/mm3 Nucleated RBC % 0.0 (0.0-0.2) % Sodium 137 (137-145) mmol/L Potassium 3.8 (3.4-5.0) mmol/L Chloride 98 (98-107) mmol/L Carbon Dioxide 32 H (22-30) mmol/L Anion Gap 7 (4-12) mmol/L BUN 7 L (9-20) mg/dL Creatinine 0.66 L (0.7-1.3) mg/dL Estim Creat Clear Calc 154 ml/min Estimated GFR > 60 (59 - ) Glucose 111 H (65-110) mg/dL Lactic Acid 1.5 (0.7-2.0) mmol/L Calcium 8.8 (8.4-10.2) mg/dL Total Bilirubin 0.7 (0.2-1.3) mg/dL AST 29 (17-59) U/L ALT 36 (6-50) U/L Alkaline Phosphatase 57 (38-126) U/L Total Protein 7.0 (6.3-8.2) g/dL Albumin 4.1 (3.5-5.1) g/dL Influenza A (RT-PCR) Positive A (Negative) Influenza B (RT-PCR) Negative (Negative) RSV (RT-PCR) Negative (Negative) SARS-CoV-2 RNA (RT-PCR) Negative (Negative) Discharge Plan Discharge Clinical Impression: Influenza A Vomiting Qualifiers: Vomiting type: unspecified Nausea presence: with nausea Qualified Code(s): R 11.2 - Nausea with vomiting, unspecified Patient Disposition: Home, Self-Care Condition: Stable Instructions: Influenza (ED), Gastroenteritis (ED) Patient Language: Albanian Prescriptions: New oseltamivir [Tamiflu] 75 mg capsule 75 mg PO Q12H 5 Days Qty: 10 0RF ondansetron 4 mg tablet,disintegrating 4 mg PO Q6-8H PRN (Reason: nausea and vomiting) Qty: 14 0RF No Action levothyroxine [Synthroid] 200 mcg tablet 175 mcg PO DAILY albuterol sulfate 90 mcg/actuation HFA aerosol inhaler 1 puff INHALATION PRN PRN (Reason: shortness of breath or wheezing) Follow-up/Referrals: UNKNOWN,DOCTOR [Primary Care Provider] - Kiki Griffin DO [Physician] - Time of Disposition: 10:43
== END 2024-05-24 10:52 | disposition home or self-care (01) ==
PROVIDERS: Emergency Provider Family Medicine
DX: J10.1 Influenza due to other identified influenza virus with other respiratory manifestations (principal); R11.2 Nausea with vomiting, unspecified; Z20.822 Contact with and (suspected) exposure to COVID-19
CPT/HCPCS: 36415; 80053; 83605; 85025; 87637; 96361; 96374; 99284; J2405; J7030